=== PATIENT | female | born 1950 | race Caucasian/White ===

== ENCOUNTER 2017-03-22 17:52 | Inpatient (IN) | payer MEDICARE, MEDICAID ==
[2017-03-22 18:50] VITALS: BP 158/110
[2017-03-22] MEDS ORDERED: Magnesium Hydroxide (MOM) 30 mL UDC PO PRN (23:28)
[2017-03-22] MEDS ORDERED: Maalox 30 mL Cup PO PRN (23:28)
[2017-03-22] MEDS ORDERED: Non-Formulary Item 1 EA (Melatonin [Melatonin] 3 MG) PO PRN (23:55)
[2017-03-22] MEDS ORDERED: guaiFENesin 200 MG/10 ML UDC PO PRN (23:55)
--- NOTE | 2017-03-23 00:03 | Discharge Summary ---
DATE OF DISCHARGE: 03/22/2017 DISCHARGE DIAGNOSES: Pneumonia, fever, hypertension, hypercholesterolemia, schizoaffective disorder, Parkinson's, hyponatremia, hyperglycemia, hypothyroidism. HISTORY OF PRESENT ILLNESS: A 67-year-old female with a history of hypertension, hypercholesterolemia, schizoaffective disorder, Parkinson's, dementia, hypothyroidism, was admitted from nursing facility secondary to increasing shortness of breath, coughing and fever. PHYSICAL EXAMINATION: GENERAL: The patient is obese, awake, alert with confusion, in no apparent distress. VITAL SIGNS: Stable. HEAD: Normocephalic, atraumatic. NECK: Supple. No mass. LUNGS: Clear bilaterally. HEART: ____. ABDOMEN: Soft, nontender. HOSPITAL COURSE: During the hospital stay, the patient was admitted to the Med-Surg Unit. The patient was kept on empiric IV antibiotics. The patient also had a chest x-ray done. Upon admission, the patient's chest x-ray showed suboptimal lung zone. Mild increased left lower lobe markings which may be due to atelectasis versus scarring. No focal consolidation identified. The patient had a blood culture done, shows no growth after 48 hours. The patient was swabbed for MRSA, negative for any MRSA. The patient was also kept on inhalation treatments as well as supplement oxygen p.r.n. The patient did not have any fevers during the hospital stay. For this reason, the patient is stable to discharge to Geropsych Unit. CONDITION UPON DISCHARGE: Fair. DISPOSITION: Geropsych unit. JOB# [id number]
[2017-03-23] MEDS ORDERED: oxyCODONE 5 mg IR Tab PO PRN (00:15)
[2017-03-23] MEDS: Levothyroxine 0.15 Mg Tab PO SCH (06:52)
[2017-03-23] MEDS ORDERED: Atorvastatin Calcium 10 MG TAB PO SCH (09:00)
[2017-03-23] MEDS ORDERED: BACLOFEN 20 MG PO SCH (09:00)
[2017-03-23] MEDS: Acetaminophen 500 MG TAB PO SCH ×3 (09:37→21:03)
[2017-03-23] MEDS: POLYETHYLENE GLYCOL 3350 17 GM PACK PO SCH (09:37)
[2017-03-23] MEDS: Multivitamin Tab PO SCH (09:38)
[2017-03-23] MEDS: Fish Oil 1,000 MG SGL PO SCH ×3 (09:39→16:52)
[2017-03-23] MEDS ORDERED: Haloperidol Lactate 5 mg/mL 1mL Vial ONE (12:27)
[2017-03-23] MEDS ORDERED: Haloperidol Lactate 5 mg/mL 1mL Vial IM ONE (12:30)
[2017-03-23] MEDS ORDERED: Magnesium Hydroxide (MOM) 30 mL UDC PO PRN (13:02)
--- NOTE | 2017-03-23 15:43 | Internal Medicine Prog Note ---
Internal Medicine Subjective - Subjective Service Date: 03/23/17 Patient seen and examined:: with staff Patient is:: awake, verbal, agitated, confused Per staff patient has:: no adverse event, tolerating meds Internal Medicine Objective - Physical Exam Vitals and I&O: Vital Signs Temp 97.6 F 03/23/17 14:00 Pulse 72 03/23/17 14:00 Resp 18 03/23/17 14:00 BP 125/87 03/23/17 14:00 Pulse Ox 95 03/23/17 14:00 Active Medications: Current Medications Acetaminophen (Tylenol) 650 mg PO Q4HR PRN PRN Reason: Mild Pain / Temp above 100 Stop: 05/21/17 23:27 Acetaminophen (Tylenol Extra Strength) 500 mg PO TID [facility] Stop: 05/22/17 08:59 Last Admin: 03/23/17 13:16 Dose: Not Given Al Hydrox/Mg Hydrox/Simethicone (Maalox) 30 ml PO Q4HR PRN PRN Reason: GI DISTRESS Stop: 05/21/17 23:27 Amantadine HCl (Symmetrel) 100 mg PO BID [facility] Stop: 05/22/17 08:59 Last Admin: 03/23/17 09:38 Dose: 100 mg Atorvastatin Calcium (Lipitor) 10 mg PO HS [facility] PRN Reason: Protocol Stop: 05/22/17 20:59 Baclofen (Lioresal) 20 mg PO BID [facility] Stop: 05/22/17 08:59 Last Admin: 03/23/17 09:39 Dose: 20 mg Carbidopa/Levodopa (Sinemet 25mg-100 Mg) 1 tab PO BID [facility] Stop: 05/22/17 08:59 Last Admin: 03/23/17 09:39 Dose: 1 tab Carvedilol (Coreg) 6.25 mg PO BID [facility] Stop: 05/22/17 08:59 Last Admin: 03/23/17 09:38 Dose: 6.25 mg Docusate Sodium (Colace) 250 mg PO DAILY [facility] Stop: 05/22/17 08:59 Last Admin: 03/23/17 09:38 Dose: 250 mg Escitalopram Oxalate (Lexapro) 10 mg PO HS [facility] PRN Reason: Protocol Stop: 05/22/17 20:59 Fish Oil ([place] 3) 1,000 mg PO BID [facility] Stop: 05/22/17 08:59 Last Admin: 03/23/17 09:39 Dose: 1,000 mg Guaifenesin (Robitussin) 200 mg PO Q8HR PRN PRN Reason: Cough or Congestion Stop: 05/21/17 23:54 Levothyroxine Sodium (Synthroid) 0.15 mg PO QDAC [facility] Stop: 05/22/17 07:29 Last Admin: 03/23/17 06:52 Dose: Not Given Lorazepam (Ativan) 0.5 mg PO DAILY PRN; Protocol PRN Reason: Anxiety Stop: 05/22/17 13:01 Magnesium Hydroxide (Milk Of Magnesia) 30 ml PO HS PRN PRN Reason: Constipation Magnesium Hydroxide (Milk Of Magnesia) 30 ml PO Q6H PRN PRN Reason: Constipation Stop: 05/22/17 13:01 Memantine (Namenda) 10 mg PO DAILY [facility] Stop: 05/22/17 08:59 Last Admin: 03/23/17 09:39 Dose: 10 mg Multivitamins/Vitamin C (Theragran) 1 tab PO DAILY [facility] Stop: 05/22/17 08:59 Last Admin: 03/23/17 09:38 Dose: 1 tab Olanzapine (Zyprexa) 2.5 mg PO QAM [facility] PRN Reason: Protocol Stop: 05/22/17 08:59 Olanzapine (Zyprexa) 5 mg PO HS [facility] PRN Reason: Protocol Stop: 05/22/17 20:59 Oxycodone HCl (Oxycodone Ir) 5 mg PO Q8H PRN PRN Reason: Pain (Moderate) Stop: 05/22/17 00:14 Polyethylene Glycol (Miralax) 17 gm PO DAILY [facility] Stop: 05/22/17 08:59 Last Admin: 03/23/17 09:37 Dose: 17 gm Tramadol HCl (Ultram) 50 mg PO Q8H PRN PRN Reason: leg pain Stop: 05/21/17 23:54 Zolpidem Tartrate (Ambien) 5 mg PO HS PRN PRN Reason: Insomnia Stop: 05/21/17 23:27 General: alert HEENT: NC/AT, PERRLA Neck: Supple Lungs: CTAB Cardiovascular: RRR, without murmur Abdomen: soft, non-tender, non-distended, positive bowel sound Extremities: excoriation Neurological: alert - Procedures Procedures: Procedures Procedure Code Date INDIVID PSYCHOTHERAP NEC 94.39 07/29/08 OTHER GROUP THERAPY 94.44 09/09/14 RECREATIONAL THERAPY 93.81 07/29/08 Internal Medicine Assmt/Plan - Assessment Assessment: HTN HYPERCHOLESTEREMIA SCHIZOAFFECTIVE PARKINSON'S HYPOTHYROIDISM - Plan Plan: fall precautions safety precautions continue current plan of care
[2017-03-23] MEDS: Atorvastatin Calcium 10 MG TAB PO SCH (21:03)
[2017-03-24] MEDS: Levothyroxine 0.15 Mg Tab PO SCH (06:52)
[2017-03-24] MEDS: Fish Oil 1,000 MG SGL PO SCH ×2 (08:55→16:24)
[2017-03-24] MEDS: Acetaminophen 500 MG TAB PO SCH ×3 (08:55→20:51)
[2017-03-24] MEDS: Multivitamin Tab PO SCH (09:00)
[2017-03-24] MEDS: POLYETHYLENE GLYCOL 3350 17 GM PACK PO SCH (09:00)
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
--- NOTE | 2017-03-24 12:40 | Internal Medicine Prog Note ---
Internal Medicine Subjective - Subjective Patient seen and examined:: with staff, chart reviewed Patient is:: awake, verbal, interactive, agitated, confused Patient Complaints of:: congestion, cough Per staff patient has:: no adverse event, noncompliant, tolerating meds Internal Medicine Objective - Physical Exam Vitals and I&O: Vital Signs Temp 98.2 F 03/24/17 08:00 Pulse 73 03/24/17 08:56 Resp 20 03/24/17 08:00 BP 166/99 03/24/17 08:56 Pulse Ox 96 03/24/17 08:00 Intake & Output 03/23/17 03/24/17 03/24/17 18:59 06:59 18:59 Intake Total 1200 240 Balance 1200 240 Intake: Oral 1200 240 Other: # Voids 1 # Bowel Movements 1 Active Medications: Current Medications Acetaminophen (Tylenol) 650 mg PO Q4HR PRN PRN Reason: Mild Pain / Temp above 100 Stop: 05/21/17 23:27 Acetaminophen (Tylenol Extra Strength) 500 mg PO TID [facility] Stop: 05/22/17 08:59 Last Admin: 03/24/17 08:55 Dose: 500 mg Al Hydrox/Mg Hydrox/Simethicone (Maalox) 30 ml PO Q4HR PRN PRN Reason: GI DISTRESS Stop: 05/21/17 23:27 Amantadine HCl (Symmetrel) 100 mg PO BID [facility] Stop: 05/22/17 08:59 Last Admin: 03/24/17 08:54 Dose: 100 mg Atorvastatin Calcium (Lipitor) 10 mg PO HS [facility] PRN Reason: Protocol Stop: 05/22/17 20:59 Last Admin: 03/23/17 21:03 Dose: 10 mg Baclofen (Lioresal) 20 mg PO BID [facility] Stop: 05/22/17 08:59 Last Admin: 03/24/17 08:54 Dose: 20 mg Carbidopa/Levodopa (Sinemet 25mg-100 Mg) 1 tab PO BID [facility] Stop: 05/22/17 08:59 Last Admin: 03/24/17 08:55 Dose: 1 tab Carvedilol (Coreg) 6.25 mg PO BID [facility] Stop: 05/22/17 08:59 Last Admin: 03/24/17 08:56 Dose: 6.25 mg Docusate Sodium (Colace) 250 mg PO DAILY [facility] Stop: 05/22/17 08:59 Last Admin: 03/24/17 09:00 Dose: Not Given Escitalopram Oxalate (Lexapro) 10 mg PO HS [facility] PRN Reason: Protocol Stop: 05/22/17 20:59 Fish Oil ([place] 3) 1,000 mg PO BID [facility] Stop: 05/22/17 08:59 Last Admin: 03/24/17 08:55 Dose: 1,000 mg Guaifenesin (Robitussin) 200 mg PO Q8HR PRN PRN Reason: Cough or Congestion Stop: 05/21/17 23:54 Levothyroxine Sodium (Synthroid) 0.15 mg PO QDAC [facility] Stop: 05/22/17 07:29 Last Admin: 03/24/17 06:52 Dose: Not Given Lorazepam (Ativan) 0.5 mg PO DAILY PRN; Protocol PRN Reason: Anxiety Stop: 05/22/17 13:01 Magnesium Hydroxide (Milk Of Magnesia) 30 ml PO HS PRN PRN Reason: Constipation Magnesium Hydroxide (Milk Of Magnesia) 30 ml PO Q6H PRN PRN Reason: Constipation Stop: 05/22/17 13:01 Memantine (Namenda) 10 mg PO DAILY [facility] Stop: 05/22/17 08:59 Last Admin: 03/24/17 08:55 Dose: 10 mg Multivitamins/Vitamin C (Theragran) 1 tab PO DAILY [facility] Stop: 05/22/17 08:59 Last Admin: 03/24/17 09:00 Dose: Not Given Olanzapine (Zyprexa) 2.5 mg PO QAM [facility] PRN Reason: Protocol Stop: 05/22/17 08:59 Olanzapine (Zyprexa) 5 mg PO HS [facility] PRN Reason: Protocol Stop: 05/22/17 20:59 Oxycodone HCl (Oxycodone Ir) 5 mg PO Q8H PRN PRN Reason: Pain (Moderate) Stop: 05/22/17 00:14 Polyethylene Glycol (Miralax) 17 gm PO DAILY [facility] Stop: 05/22/17 08:59 Last Admin: 03/24/17 09:00 Dose: Not Given Tramadol HCl (Ultram) 50 mg PO Q8H PRN PRN Reason: leg pain Stop: 05/21/17 23:54 Zolpidem Tartrate (Ambien) 5 mg PO HS PRN PRN Reason: Insomnia Stop: 05/21/17 23:27 General: alert HEENT: NC/AT, PERRLA Neck: Supple Lungs: CTAB Cardiovascular: RRR, without murmur Abdomen: soft, non-tender, non-distended, positive bowel sound Extremities: excoriation Neurological: alert - Procedures Procedures: Procedures Procedure Code Date INDIVID PSYCHOTHERAP NEC 94.39 07/29/08 OTHER GROUP THERAPY 94.44 09/09/14 RECREATIONAL THERAPY 93.81 07/29/08 Internal Medicine Assmt/Plan - Assessment Assessment: - Assessment Assessment: HTN HYPERCHOLESTEREMIA SCHIZOAFFECTIVE PARKINSON'S HYPOTHYROIDISM - Plan Plan: fall precautions safety precautions continue current plan of care - Plan Plan: leida rn will order cxr
[2017-03-24] MEDS: Atorvastatin Calcium 10 MG TAB PO SCH (20:52)
[2017-03-25] MEDS: Levothyroxine 0.15 Mg Tab PO SCH (06:45)
[2017-03-25] MEDS: Fish Oil 1,000 MG SGL PO SCH ×2 (08:16→17:31)
[2017-03-25] MEDS: POLYETHYLENE GLYCOL 3350 17 GM PACK PO SCH (08:16)
[2017-03-25] MEDS: Multivitamin Tab PO SCH (08:16)
[2017-03-25] MEDS: Acetaminophen 500 MG TAB PO SCH ×3 (08:17→20:55)
--- NOTE | 2017-03-25 09:22 | Progress Notes ---
DATE: 03/24/2017 SUBJECTIVE: The patient was seen and evaluated. The patient's chart reviewed. This is Dr. Newton covering for Dr. Mandel. She is a 67-year-old female, brought in here from the Med/Surg and observed initially after being very agitated, status post pneumonia, yelling and screaming, depression, and feeling overwhelmed. She initially reported that her mood was not good and wanted to go. She has a history of schizoaffective, bipolar type and also dementia as per document. Today on [id number] evaluation, the patient denies any side effects to medications. Nursing staff overnight reports that she intermittently screams to them and on [id number] evaluation denies. She is guarded, mildly suspicious, denies any side effects of medication. MENTAL STATUS EXAMINATION: Mildly suspicious, depressed, melancholic. ASSESSMENT AND PLAN: The patient is a 67-year-old female with a history of schizoaffective, depressive type. We will continue with the current psychiatrist's treatment plan and goals, which include Sinemet, Coreg, Lexapro 10 mg a day, levothyroxine, Namenda 10 mg a day, olanzapine 2.5 mg in the morning and 5 mg at nighttime. We will continue monitoring and evaluating. We will continue providing supportive therapy. JOB# [id number]
--- NOTE | 2017-03-25 09:47 | Diagnostic Imaging Report ---
CHEST X-RAY: AP view INDICATION: Cough COMPARISON: 02/29/2016 FINDINGS: Chronic changes seen with no focal consolidation or effusions. Heart size is upper limits of normal. Atherosclerosis is noted. Degenerative changes of the spine are noted with scoliosis. IMPRESSION: No focal airspace consolidation identified.
--- NOTE | 2017-03-25 10:13 | Internal Medicine Prog Note ---
Internal Medicine Subjective - Subjective Patient seen and examined:: with staff, chart reviewed Patient is:: awake, verbal, interactive, agitated, confused Patient Complaints of:: congestion, cough Per staff patient has:: no adverse event, noncompliant, tolerating meds Internal Medicine Objective - Physical Exam Vitals and I&O: Vital Signs Temp 97.8 F 03/25/17 06:53 Pulse 80 03/25/17 08:16 Resp 18 03/25/17 06:53 BP 206/109 03/25/17 08:16 Pulse Ox 92 03/25/17 06:53 Intake & Output 03/24/17 03/25/17 03/25/17 18:59 06:59 18:59 Intake Total 1000 480 Balance 1000 480 Intake: Oral 1000 480 Other: # Voids 3 2 # Bowel Movements 1 Active Medications: Current Medications Acetaminophen (Tylenol) 650 mg PO Q4HR PRN PRN Reason: Mild Pain / Temp above 100 Stop: 05/21/17 23:27 Acetaminophen (Tylenol Extra Strength) 500 mg PO TID [facility] Stop: 05/22/17 08:59 Last Admin: 03/25/17 08:17 Dose: 500 mg Al Hydrox/Mg Hydrox/Simethicone (Maalox) 30 ml PO Q4HR PRN PRN Reason: GI DISTRESS Stop: 05/21/17 23:27 Amantadine HCl (Symmetrel) 100 mg PO BID [facility] Stop: 05/22/17 08:59 Last Admin: 03/25/17 08:16 Dose: 100 mg Atorvastatin Calcium (Lipitor) 10 mg PO HS [facility] PRN Reason: Protocol Stop: 05/22/17 20:59 Last Admin: 03/24/17 20:52 Dose: 10 mg Baclofen (Lioresal) 20 mg PO BID [facility] Stop: 05/22/17 08:59 Last Admin: 03/25/17 08:17 Dose: 20 mg Carbidopa/Levodopa (Sinemet 25mg-100 Mg) 1 tab PO BID [facility] Stop: 05/22/17 08:59 Last Admin: 03/25/17 08:17 Dose: 1 tab Carvedilol (Coreg) 12.5 mg PO BID [facility] Stop: 05/23/17 16:59 Last Admin: 03/25/17 08:16 Dose: 12.5 mg Docusate Sodium (Colace) 250 mg PO DAILY [facility] Stop: 05/22/17 08:59 Last Admin: 03/25/17 08:16 Dose: 250 mg Escitalopram Oxalate (Lexapro) 10 mg PO HS [facility] PRN Reason: Protocol Stop: 05/22/17 20:59 Fish Oil ([place]iro 3) 1,000 mg PO BID [facility] Stop: 05/22/17 08:59 Last Admin: 03/25/17 08:16 Dose: 1,000 mg Guaifenesin (Robitussin) 200 mg PO Q8HR PRN PRN Reason: Cough or Congestion Stop: 05/21/17 23:54 Last Admin: 03/24/17 13:31 Dose: 200 mg Levothyroxine Sodium (Synthroid) 0.15 mg PO QDAC [facility] Stop: 05/22/17 07:29 Last Admin: 03/25/17 06:45 Dose: Not Given Lorazepam (Ativan) 0.5 mg PO DAILY PRN; Protocol PRN Reason: Anxiety Stop: 05/22/17 13:01 Last Admin: 03/24/17 20:52 Dose: 0.5 mg Magnesium Hydroxide (Milk Of Magnesia) 30 ml PO HS PRN PRN Reason: Constipation Magnesium Hydroxide (Milk Of Magnesia) 30 ml PO Q6H PRN PRN Reason: Constipation Stop: 05/22/17 13:01 Memantine (Namenda) 10 mg PO DAILY [facility] Stop: 05/22/17 08:59 Last Admin: 03/25/17 08:17 Dose: 10 mg Multivitamins/Vitamin C (Theragran) 1 tab PO DAILY [facility] Stop: 05/22/17 08:59 Last Admin: 03/25/17 08:16 Dose: 1 tab Olanzapine (Zyprexa) 2.5 mg PO QAM [facility] PRN Reason: Protocol Stop: 05/22/17 08:59 Olanzapine (Zyprexa) 5 mg PO HS [facility] PRN Reason: Protocol Stop: 05/22/17 20:59 Oxycodone HCl (Oxycodone Ir) 5 mg PO Q8H PRN PRN Reason: Pain (Moderate) Stop: 05/22/17 00:14 Polyethylene Glycol (Miralax) 17 gm PO DAILY [facility] Stop: 05/22/17 08:59 Last Admin: 03/25/17 08:16 Dose: 17 gm Tramadol HCl (Ultram) 50 mg PO Q8H PRN PRN Reason: leg pain Stop: 05/21/17 23:54 Zolpidem Tartrate (Ambien) 5 mg PO HS PRN PRN Reason: Insomnia Stop: 05/21/17 23:27 Last Admin: 03/24/17 20:51 Dose: 5 mg General: alert HEENT: NC/AT, PERRLA Neck: Supple Lungs: CTAB Cardiovascular: RRR, without murmur Abdomen: soft, non-tender, non-distended, positive bowel sound Extremities: excoriation Neurological: alert - Procedures Procedures: Procedures Procedure Code Date INDIVID PSYCHOTHERAP NEC 94.39 07/29/08 OTHER GROUP THERAPY 94.44 09/09/14 RECREATIONAL THERAPY 93.81 07/29/08 Internal Medicine Assmt/Plan - Assessment Assessment: - Assessment Assessment: HTN HYPERCHOLESTEREMIA SCHIZOAFFECTIVE PARKINSON'S HYPOTHYROIDISM - Plan Plan: fall precautions safety precautions continue current plan of care - Plan Plan: leida rn will order cxr
[2017-03-25] MEDS: Atorvastatin Calcium 10 MG TAB PO SCH (20:57)
--- NOTE | 2017-03-26 08:47 | Progress Notes ---
DATE: 03/25/2017 SUBJECTIVE: The patient was seen and evaluated. The patient's chart reviewed. This is Dr. Newton, covering for Dr. Spencer. Overnight, nursing staff reported the patient was mostly kept in her room with intermittent scream, but at times can be redirectable. Today on [id number] evaluation, the patient reports that there are no chest pains and also reported that her mild cough is also improved. She is more redirectable. MENTAL STATUS EXAMINATION: Still observed to be slightly disorganized with intermittent yelling, screaming. Denies any SI/HI. No overt psychotic symptoms. ASSESSMENT AND PLAN: The patient is a 67-year-old female with a history of schizoaffective bipolar type, continuing to require ____. She continues intermittently to be agitated and combative, although improving with the recent addition of Zyprexa and Namenda. JOB# [id number]
[2017-03-26] MEDS: Multivitamin Tab PO SCH (09:31)
[2017-03-26] MEDS: Acetaminophen 500 MG TAB PO SCH ×3 (09:31→20:32)
[2017-03-26] MEDS: Levothyroxine 0.15 Mg Tab PO SCH (09:32)
[2017-03-26] MEDS: Fish Oil 1,000 MG SGL PO SCH ×2 (09:32→16:22)
[2017-03-26] MEDS: POLYETHYLENE GLYCOL 3350 17 GM PACK PO SCH (09:32)
--- NOTE | 2017-03-26 12:41 | Internal Medicine Prog Note ---
Internal Medicine Subjective - Subjective Service Date: 03/26/17 Patient is:: awake, verbal, interactive, agitated, confused Patient Complaints of:: congestion, cough Per staff patient has:: no adverse event, noncompliant, tolerating meds Internal Medicine Objective - Physical Exam Vitals and I&O: Vital Signs Temp 97.8 F 03/26/17 06:07 Pulse 68 03/26/17 09:31 Resp 18 03/26/17 06:07 BP 160/83 03/26/17 09:31 Pulse Ox 96 03/26/17 06:07 Intake & Output 03/25/17 03/26/17 03/26/17 18:59 06:59 18:59 Intake Total 1600 120 Balance 1600 120 Intake: Oral 1600 120 Other: # Voids 4 3 # Bowel Movements 0 Active Medications: Current Medications Acetaminophen (Tylenol) 650 mg PO Q4HR PRN PRN Reason: Mild Pain / Temp above 100 Stop: 05/21/17 23:27 Acetaminophen (Tylenol Extra Strength) 500 mg PO TID [facility] Stop: 05/22/17 08:59 Last Admin: 03/26/17 09:31 Dose: 500 mg Al Hydrox/Mg Hydrox/Simethicone (Maalox) 30 ml PO Q4HR PRN PRN Reason: GI DISTRESS Stop: 05/21/17 23:27 Amantadine HCl (Symmetrel) 100 mg PO BID [facility] Stop: 05/22/17 08:59 Last Admin: 03/26/17 09:31 Dose: 100 mg Atorvastatin Calcium (Lipitor) 10 mg PO HS [facility] PRN Reason: Protocol Stop: 05/22/17 20:59 Last Admin: 03/25/17 20:57 Dose: 10 mg Baclofen (Lioresal) 20 mg PO BID [facility] Stop: 05/22/17 08:59 Last Admin: 03/26/17 09:32 Dose: 20 mg Carbidopa/Levodopa (Sinemet 25mg-100 Mg) 1 tab PO BID [facility] Stop: 05/22/17 08:59 Last Admin: 03/26/17 09:31 Dose: 1 tab Carvedilol (Coreg) 12.5 mg PO BID [facility] Stop: 05/23/17 16:59 Last Admin: 03/26/17 09:31 Dose: 12.5 mg Docusate Sodium (Colace) 250 mg PO DAILY [facility] Stop: 05/22/17 08:59 Last Admin: 03/26/17 09:31 Dose: 250 mg Escitalopram Oxalate (Lexapro) 10 mg PO HS [facility] PRN Reason: Protocol Stop: 05/22/17 20:59 Last Admin: 03/25/17 20:56 Dose: 10 mg Fish Oil ([place] 3) 1,000 mg PO BID [facility] Stop: 05/22/17 08:59 Last Admin: 03/26/17 09:32 Dose: 1,000 mg Guaifenesin (Robitussin) 200 mg PO Q8HR PRN PRN Reason: Cough or Congestion Stop: 05/21/17 23:54 Last Admin: 03/24/17 13:31 Dose: 200 mg Levothyroxine Sodium 0.1 mg/ (Levothyroxine Sodium 0.05 mg) 0.15 mg PO QDAC [facility] Stop: 05/25/17 09:44 Lorazepam (Ativan) 0.5 mg PO DAILY PRN; Protocol PRN Reason: Anxiety Stop: 05/22/17 13:01 Last Admin: 03/24/17 20:52 Dose: 0.5 mg Magnesium Hydroxide (Milk Of Magnesia) 30 ml PO Q6H PRN PRN Reason: Constipation Stop: 05/22/17 13:01 Memantine (Namenda) 10 mg PO DAILY [facility] Stop: 05/22/17 08:59 Last Admin: 03/26/17 09:31 Dose: 10 mg Multivitamins/Vitamin C (Theragran) 1 tab PO DAILY [facility] Stop: 05/22/17 08:59 Last Admin: 03/26/17 09:31 Dose: 1 tab Olanzapine (Zyprexa) 5 mg PO HS [facility] PRN Reason: Protocol Stop: 05/22/17 20:59 Last Admin: 03/25/17 20:56 Dose: 5 mg Olanzapine (Zyprexa) 5 mg PO QAM [facility] PRN Reason: Protocol Stop: 05/25/17 12:38 Oxycodone HCl (Oxycodone Ir) 5 mg PO Q8H PRN PRN Reason: Pain (Moderate) Stop: 05/22/17 00:14 Polyethylene Glycol (Miralax) 17 gm PO DAILY [facility] Stop: 05/22/17 08:59 Last Admin: 03/26/17 09:32 Dose: 17 gm Tramadol HCl (Ultram) 50 mg PO Q8H PRN PRN Reason: leg pain Stop: 05/21/17 23:54 Zolpidem Tartrate (Ambien) 5 mg PO HS PRN PRN Reason: Insomnia Stop: 05/21/17 23:27 Last Admin: 03/24/17 20:51 Dose: 5 mg General: alert HEENT: NC/AT, PERRLA Neck: Supple Lungs: CTAB Cardiovascular: RRR, without murmur Abdomen: soft, non-tender, non-distended, positive bowel sound Extremities: excoriation Neurological: alert - Procedures Procedures: Procedures Procedure Code Date INDIVID PSYCHOTHERAP NEC 94.39 07/29/08 OTHER GROUP THERAPY 94.44 09/09/14 RECREATIONAL THERAPY 93.81 07/29/08 Internal Medicine Assmt/Plan - Assessment Assessment: HTN HYPERCHOLESTEREMIA SCHIZOAFFECTIVE PARKINSON'S HYPOTHYROIDISM - Plan Plan: fall precautions safety precautions continue current plan of care
[2017-03-26] MEDS: Atorvastatin Calcium 10 MG TAB PO SCH (20:30)
--- NOTE | 2017-03-26 22:58 | Progress Notes ---
DATE: 03/26/2017 Case was discussed with staff of the patient and reviewed records. This is the patient I have seen over in the medical floor. She was very agitated, kept asking for the nurses to help her and when they went to help her, she still would not cooperate. She continues to have episodes of being agitated, yelling, and screaming. Continues to have poor insight. Unable to make a safe plan for her self-care, unpredictable and impulsive. I did increase her olanzapine dose to 7.5 mg a day and I will be making further adjustment. No side effects with the medication, no sedation, no nausea, no extrapyramidal symptoms. I will continue the patient in group therapy, milieu therapy, and adjust the medication as needed and as far as her lab works they are not on the records yet. JOB# [id number]
[2017-03-27] MEDS: POLYETHYLENE GLYCOL 3350 17 GM PACK PO SCH (08:35)
[2017-03-27] MEDS: Acetaminophen 500 MG TAB PO SCH ×3 (08:36→20:25)
[2017-03-27] MEDS: Multivitamin Tab PO SCH (08:37)
[2017-03-27] MEDS: Fish Oil 1,000 MG SGL PO SCH ×2 (08:38→17:15)
--- NOTE | 2017-03-27 12:55 | Internal Medicine Prog Note ---
Internal Medicine Subjective - Subjective Service Date: 03/27/17 Patient is:: awake, verbal, interactive, agitated, confused Patient Complaints of:: congestion, cough Per staff patient has:: no adverse event, noncompliant, tolerating meds Internal Medicine Objective - Physical Exam Vitals and I&O: Vital Signs Temp 98.0 F 03/27/17 06:33 Pulse 67 03/27/17 08:37 Resp 20 03/27/17 06:33 BP 170/94 03/27/17 08:37 Pulse Ox 93 03/27/17 06:33 Intake & Output 03/26/17 03/27/17 03/27/17 18:59 06:59 18:59 Intake Total 950 Balance 950 Intake: Oral 950 Other: # Voids 4 # Bowel Movements 1 Active Medications: Current Medications Acetaminophen (Tylenol) 650 mg PO Q4HR PRN PRN Reason: Mild Pain / Temp above 100 Stop: 05/21/17 23:27 Acetaminophen (Tylenol Extra Strength) 500 mg PO TID [facility] Stop: 05/22/17 08:59 Last Admin: 03/27/17 08:36 Dose: 500 mg Al Hydrox/Mg Hydrox/Simethicone (Maalox) 30 ml PO Q4HR PRN PRN Reason: GI DISTRESS Stop: 05/21/17 23:27 Amantadine HCl (Symmetrel) 100 mg PO BID [facility] Stop: 05/22/17 08:59 Last Admin: 03/27/17 08:38 Dose: 100 mg Atorvastatin Calcium (Lipitor) 10 mg PO HS [facility] PRN Reason: Protocol Stop: 05/22/17 20:59 Last Admin: 03/26/17 20:30 Dose: 10 mg Baclofen (Lioresal) 20 mg PO BID [facility] Stop: 05/22/17 08:59 Last Admin: 03/27/17 08:35 Dose: 20 mg Carbidopa/Levodopa (Sinemet 25mg-100 Mg) 1 tab PO BID [facility] Stop: 05/22/17 08:59 Last Admin: 03/27/17 08:36 Dose: 1 tab Carvedilol (Coreg) 12.5 mg PO BID [facility] Stop: 05/23/17 16:59 Last Admin: 03/27/17 08:37 Dose: 12.5 mg Docusate Sodium (Colace) 250 mg PO DAILY [facility] Stop: 05/22/17 08:59 Last Admin: 03/27/17 08:36 Dose: 250 mg Escitalopram Oxalate (Lexapro) 10 mg PO HS [facility] PRN Reason: Protocol Stop: 05/22/17 20:59 Last Admin: 03/26/17 20:31 Dose: 10 mg Fish Oil ([place] 3) 1,000 mg PO BID [facility] Stop: 05/22/17 08:59 Last Admin: 03/27/17 08:38 Dose: 1,000 mg Guaifenesin (Robitussin) 200 mg PO Q8HR PRN PRN Reason: Cough or Congestion Stop: 05/21/17 23:54 Last Admin: 03/24/17 13:31 Dose: 200 mg Levothyroxine Sodium 0.1 mg/ (Levothyroxine Sodium 0.05 mg) 0.15 mg PO QDAC [facility] Stop: 05/25/17 09:44 Last Admin: 03/27/17 06:52 Dose: 0.15 mg Lorazepam (Ativan) 0.5 mg PO DAILY PRN; Protocol PRN Reason: Anxiety Stop: 05/22/17 13:01 Last Admin: 03/24/17 20:52 Dose: 0.5 mg Magnesium Hydroxide (Milk Of Magnesia) 30 ml PO Q6H PRN PRN Reason: Constipation Stop: 05/22/17 13:01 Memantine (Namenda) 10 mg PO DAILY [facility] Stop: 05/22/17 08:59 Last Admin: 03/27/17 08:36 Dose: 10 mg Multivitamins/Vitamin C (Theragran) 1 tab PO DAILY [facility] Stop: 05/22/17 08:59 Last Admin: 03/27/17 08:37 Dose: 1 tab Olanzapine (Zyprexa) 5 mg PO HS [facility] PRN Reason: Protocol Stop: 05/22/17 20:59 Last Admin: 03/26/17 20:31 Dose: 5 mg Olanzapine (Zyprexa) 5 mg PO QAM [facility] PRN Reason: Protocol Stop: 05/25/17 12:38 Last Admin: 03/27/17 08:36 Dose: 5 mg Oxycodone HCl (Oxycodone Ir) 5 mg PO Q8H PRN PRN Reason: Pain (Moderate) Stop: 05/22/17 00:14 Polyethylene Glycol (Miralax) 17 gm PO DAILY [facility] Stop: 05/22/17 08:59 Last Admin: 03/27/17 08:35 Dose: 17 gm Tramadol HCl (Ultram) 50 mg PO Q8H PRN PRN Reason: leg pain Stop: 05/21/17 23:54 Zolpidem Tartrate (Ambien) 5 mg PO HS PRN PRN Reason: Insomnia Stop: 05/21/17 23:27 Last Admin: 03/26/17 20:39 Dose: 5 mg General: alert HEENT: NC/AT, PERRLA Neck: Supple Lungs: CTAB Cardiovascular: RRR, without murmur Abdomen: soft, non-tender, non-distended, positive bowel sound Extremities: excoriation Neurological: alert - Procedures Procedures: Procedures Procedure Code Date INDIVID PSYCHOTHERAP NEC 94.39 07/29/08 OTHER GROUP THERAPY 94.44 09/09/14 RECREATIONAL THERAPY 93.81 07/29/08 Internal Medicine Assmt/Plan - Assessment Assessment: HTN HYPERCHOLESTEREMIA SCHIZOAFFECTIVE PARKINSON'S HYPOTHYROIDISM - Plan Plan: fall precautions safety precautions continue current plan of care
--- NOTE | 2017-03-27 16:20 | Progress Notes ---
DATE: 03/27/2017 Case was discussed with staff of the patient, reviewed records. The patient continues to be labile, continues to be demanding, yelling and screaming, hard to redirect, very hard to please, very poor insight, unable to make safe plan for self-care, confused, and demented. She is compliant with the medication with no side effects, no sedation, no nausea, no extrapyramidal symptoms. I did increase her Zyprexa dose. We will continue to work with the patient in group therapy and milieu therapy and adjust medication as needed. JOB# [id number]
[2017-03-27] MEDS: Atorvastatin Calcium 10 MG TAB PO SCH (20:24)
[2017-03-28] MEDS: Acetaminophen 500 MG TAB PO SCH ×3 (09:59→20:37)
[2017-03-28] MEDS: Fish Oil 1,000 MG SGL PO SCH (10:03)
[2017-03-28] MEDS: Multivitamin Tab PO SCH (10:03)
[2017-03-28] MEDS: POLYETHYLENE GLYCOL 3350 17 GM PACK PO SCH (10:03)
--- NOTE | 2017-03-28 12:15 | Internal Medicine Prog Note ---
Internal Medicine Subjective - Subjective Service Date: 03/28/17 Patient is:: awake, verbal, interactive, agitated, confused Patient Complaints of:: congestion, cough Per staff patient has:: no adverse event, noncompliant, tolerating meds Internal Medicine Objective - Physical Exam Vitals and I&O: Vital Signs Temp 98.2 F 03/28/17 07:41 Pulse 74 03/28/17 10:02 Resp 20 03/28/17 07:41 BP 161/90 03/28/17 10:02 Pulse Ox 93 03/28/17 07:41 Intake & Output 03/27/17 03/28/17 03/28/17 18:59 06:59 18:59 Intake Total 900 240 240 Balance 900 240 240 Intake: Oral 900 240 240 Other: # Voids 5 2 2 # Bowel Movements 1 1 Active Medications: Current Medications Acetaminophen (Tylenol) 650 mg PO Q4HR PRN PRN Reason: Mild Pain / Temp above 100 Stop: 05/21/17 23:27 Acetaminophen (Tylenol Extra Strength) 500 mg PO TID [facility] Stop: 05/22/17 08:59 Last Admin: 03/28/17 09:59 Dose: 500 mg Al Hydrox/Mg Hydrox/Simethicone (Maalox) 30 ml PO Q4HR PRN PRN Reason: GI DISTRESS Stop: 05/21/17 23:27 Amantadine HCl (Symmetrel) 100 mg PO BID [facility] Stop: 05/22/17 08:59 Last Admin: 03/28/17 10:04 Dose: 100 mg Atorvastatin Calcium (Lipitor) 10 mg PO HS [facility] PRN Reason: Protocol Stop: 05/22/17 20:59 Last Admin: 03/27/17 20:24 Dose: 10 mg Baclofen (Lioresal) 20 mg PO BID [facility] Stop: 05/22/17 08:59 Last Admin: 03/28/17 10:01 Dose: 20 mg Carbidopa/Levodopa (Sinemet 25mg-100 Mg) 1 tab PO BID [facility] Stop: 05/22/17 08:59 Last Admin: 03/28/17 10:02 Dose: 1 tab Carvedilol (Coreg) 12.5 mg PO BID [facility] Stop: 05/23/17 16:59 Last Admin: 03/28/17 10:02 Dose: 12.5 mg Docusate Sodium (Colace) 250 mg PO DAILY [facility] Stop: 05/22/17 08:59 Last Admin: 03/28/17 10:03 Dose: 250 mg Escitalopram Oxalate (Lexapro) 10 mg PO HS [facility] PRN Reason: Protocol Stop: 05/22/17 20:59 Last Admin: 03/27/17 20:24 Dose: 10 mg Fish Oil ([place] 3) 1,000 mg PO BID [facility] Stop: 05/22/17 08:59 Last Admin: 03/28/17 10:03 Dose: 1,000 mg Guaifenesin (Robitussin) 200 mg PO Q8HR PRN PRN Reason: Cough or Congestion Stop: 05/21/17 23:54 Last Admin: 03/24/17 13:31 Dose: 200 mg Levothyroxine Sodium 0.1 mg/ (Levothyroxine Sodium 0.05 mg) 0.15 mg PO QDAC [facility] Stop: 05/25/17 09:44 Last Admin: 03/28/17 06:35 Dose: 0.15 mg Lorazepam (Ativan) 0.5 mg PO DAILY PRN; Protocol PRN Reason: Anxiety Stop: 05/22/17 13:01 Last Admin: 03/27/17 20:25 Dose: 0.5 mg Magnesium Hydroxide (Milk Of Magnesia) 30 ml PO Q6H PRN PRN Reason: Constipation Stop: 05/22/17 13:01 Memantine (Namenda) 10 mg PO BID [facility] Stop: 05/27/17 08:59 Last Admin: 03/28/17 10:03 Dose: 10 mg Multivitamins/Vitamin C (Theragran) 1 tab PO DAILY [facility] Stop: 05/22/17 08:59 Last Admin: 03/28/17 10:03 Dose: 1 tab Olanzapine (Zyprexa) 5 mg PO HS [facility] PRN Reason: Protocol Stop: 05/22/17 20:59 Last Admin: 03/27/17 20:24 Dose: 5 mg Olanzapine (Zyprexa) 5 mg PO QAM [facility] PRN Reason: Protocol Stop: 05/25/17 12:38 Last Admin: 03/28/17 10:03 Dose: 5 mg Oxycodone HCl (Oxycodone Ir) 5 mg PO Q8H PRN PRN Reason: Pain (Moderate) Stop: 05/22/17 00:14 Polyethylene Glycol (Miralax) 17 gm PO DAILY [facility] Stop: 05/22/17 08:59 Last Admin: 03/28/17 10:03 Dose: Not Given Tramadol HCl (Ultram) 50 mg PO Q8H PRN PRN Reason: leg pain Stop: 05/21/17 23:54 Zolpidem Tartrate (Ambien) 5 mg PO HS PRN PRN Reason: Insomnia Stop: 05/21/17 23:27 Last Admin: 03/27/17 20:25 Dose: 5 mg General: alert HEENT: NC/AT, PERRLA Neck: Supple Lungs: CTAB Cardiovascular: RRR, without murmur Abdomen: soft, non-tender, non-distended, positive bowel sound Extremities: excoriation Neurological: alert - Procedures Procedures: Procedures Procedure Code Date INDIVID PSYCHOTHERAP NEC 94.39 07/29/08 OTHER GROUP THERAPY 94.44 09/09/14 RECREATIONAL THERAPY 93.81 07/29/08 Internal Medicine Assmt/Plan - Assessment Assessment: HTN HYPERCHOLESTEREMIA SCHIZOAFFECTIVE PARKINSON'S HYPOTHYROIDISM - Plan Plan: fall precautions safety precautions continue current plan of care
--- NOTE | 2017-03-28 15:52 | Progress Notes ---
DATE: 03/28/2017 Case was discussed with staff of the patient, reviewed records. The patient continues to have episodes of yelling and screaming. Continues to have poor insight. Continues to be unpredictable, impulsive, needing redirection. She is able to tell me her age. She has very poor insight, concentrated on going to [place], unable to make safe plan for self-care. I did increase her olanzapine to 5 mg twice a day with no side effects, no sedation, no nausea, and no extrapyramidal symptoms. She is on Namenda 10 mg daily. I will be increasing the dose to 10 mg twice a day to improve her memory and behavior and so far no side effects. We will continue to work with the patient in group therapy, milieu therapy, and adjust the medication as needed. JOB# [id number]
[2017-03-28] MEDS: Atorvastatin Calcium 10 MG TAB PO SCH (20:37)
[2017-03-29] MEDS: Acetaminophen 500 MG TAB PO SCH ×3 (12:11→20:23)
[2017-03-29] MEDS: POLYETHYLENE GLYCOL 3350 17 GM PACK PO SCH (12:13)
[2017-03-29] MEDS: Fish Oil 1,000 MG SGL PO SCH ×2 (12:13→18:22)
[2017-03-29] MEDS: Multivitamin Tab PO SCH (12:13)
--- NOTE | 2017-03-29 12:17 | Internal Medicine Prog Note ---
Internal Medicine Subjective - Subjective Service Date: 03/29/17 Patient is:: awake, verbal, interactive, agitated, confused Patient Complaints of:: congestion, cough Per staff patient has:: no adverse event, noncompliant, tolerating meds Internal Medicine Objective - Physical Exam Vitals and I&O: Vital Signs Temp 98.2 F 03/28/17 15:51 Pulse 76 03/29/17 12:12 Resp 20 03/28/17 15:51 BP 180/113 03/29/17 12:12 Pulse Ox 93 03/28/17 15:51 Intake & Output 03/28/17 03/29/17 03/29/17 18:59 06:59 18:59 Intake Total 240 Balance 240 Intake: Oral 240 Other: # Voids 2 # Bowel Movements 1 Active Medications: Current Medications Acetaminophen (Tylenol) 650 mg PO Q4HR PRN PRN Reason: Mild Pain / Temp above 100 Stop: 05/21/17 23:27 Acetaminophen (Tylenol Extra Strength) 500 mg PO TID [facility] Stop: 05/22/17 08:59 Last Admin: 03/29/17 12:11 Dose: Not Given Al Hydrox/Mg Hydrox/Simethicone (Maalox) 30 ml PO Q4HR PRN PRN Reason: GI DISTRESS Stop: 05/21/17 23:27 Amantadine HCl (Symmetrel) 100 mg PO BID [facility] Stop: 05/22/17 08:59 Last Admin: 03/29/17 12:08 Dose: 100 mg Atorvastatin Calcium (Lipitor) 10 mg PO HS [facility] PRN Reason: Protocol Stop: 05/22/17 20:59 Last Admin: 03/28/17 20:37 Dose: 10 mg Baclofen (Lioresal) 20 mg PO BID [facility] Stop: 05/22/17 08:59 Last Admin: 03/29/17 12:12 Dose: 20 mg Carbidopa/Levodopa (Sinemet 25mg-100 Mg) 1 tab PO BID [facility] Stop: 05/22/17 08:59 Last Admin: 03/29/17 12:12 Dose: 1 tab Carvedilol (Coreg) 12.5 mg PO BID [facility] Stop: 05/23/17 16:59 Last Admin: 03/29/17 12:12 Dose: 12.5 mg Docusate Sodium (Colace) 250 mg PO DAILY [facility] Stop: 05/22/17 08:59 Last Admin: 03/29/17 12:13 Dose: 250 mg Escitalopram Oxalate (Lexapro) 10 mg PO HS [facility] PRN Reason: Protocol Stop: 05/22/17 20:59 Last Admin: 03/28/17 20:37 Dose: 10 mg Fish Oil ([place] 3) 1,000 mg PO BID [facility] Stop: 05/22/17 08:59 Last Admin: 03/29/17 12:13 Dose: 1,000 mg Guaifenesin (Robitussin) 200 mg PO Q8HR PRN PRN Reason: Cough or Congestion Stop: 05/21/17 23:54 Last Admin: 03/24/17 13:31 Dose: 200 mg Levothyroxine Sodium 0.1 mg/ (Levothyroxine Sodium 0.05 mg) 0.15 mg PO QDAC [facility] Stop: 05/25/17 09:44 Last Admin: 03/29/17 06:31 Dose: 0.15 mg Lorazepam (Ativan) 0.5 mg PO DAILY PRN; Protocol PRN Reason: Anxiety Stop: 05/22/17 13:01 Last Admin: 03/29/17 00:12 Dose: 0.5 mg Magnesium Hydroxide (Milk Of Magnesia) 30 ml PO Q6H PRN PRN Reason: Constipation Stop: 05/22/17 13:01 Memantine (Namenda) 10 mg PO BID [facility] Stop: 05/27/17 08:59 Last Admin: 03/29/17 12:13 Dose: 10 mg Multivitamins/Vitamin C (Theragran) 1 tab PO DAILY [facility] Stop: 05/22/17 08:59 Last Admin: 03/29/17 12:13 Dose: 1 tab Olanzapine (Zyprexa) 5 mg PO HS [facility] PRN Reason: Protocol Stop: 05/22/17 20:59 Last Admin: 03/28/17 20:37 Dose: 5 mg Olanzapine (Zyprexa) 5 mg PO QAM [facility] PRN Reason: Protocol Stop: 05/25/17 12:38 Last Admin: 03/29/17 12:13 Dose: 5 mg Oxycodone HCl (Oxycodone Ir) 5 mg PO Q8H PRN PRN Reason: Pain (Moderate) Stop: 05/22/17 00:14 Polyethylene Glycol (Miralax) 17 gm PO DAILY [facility] Stop: 05/22/17 08:59 Last Admin: 03/29/17 12:13 Dose: 17 gm Tramadol HCl (Ultram) 50 mg PO Q8H PRN PRN Reason: leg pain Stop: 05/21/17 23:54 Zolpidem Tartrate (Ambien) 5 mg PO HS PRN PRN Reason: Insomnia Stop: 05/21/17 23:27 Last Admin: 03/29/17 00:12 Dose: 5 mg General: alert HEENT: NC/AT, PERRLA Neck: Supple Lungs: CTAB Cardiovascular: RRR, without murmur Abdomen: soft, non-tender, non-distended, positive bowel sound Extremities: excoriation Neurological: alert - Procedures Procedures: Procedures Procedure Code Date INDIVID PSYCHOTHERAP NEC 94.39 07/29/08 OTHER GROUP THERAPY 94.44 09/09/14 RECREATIONAL THERAPY 93.81 07/29/08 Internal Medicine Assmt/Plan - Assessment Assessment: HTN HYPERCHOLESTEREMIA SCHIZOAFFECTIVE PARKINSON'S HYPOTHYROIDISM - Plan Plan: fall precautions safety precautions continue current plan of care Nutritional Asmnt/Malnutr-PDOC - Dietary Evaluation Malnutrition Findings (Please click <Entered> for more info): Nutritional Asmnt/Malnutrition Start: 03/28/17 15: 31 Text: Status: Complete Freq: Document 03/28/17 15:31 LCHENG (Rec: 03/28/17 15:37 [email or web address]) Nutritional Asmnt/Malnutrition Patient General Information Nutritional Screening Moderate Risk Diagnosis psychosis Pertinent Medical Hx/Surgical Hx HTN, hypercholesterolemia, schizophrenia, pankinson/s disease, dementia, hypothyroidism Subjective Information Pt seen lying in bed, awake. Pt reported good appetite, has difficulty to chew rice, like herbal tea instead of coffee. pt has partial teeth noted. Per notes, PO intake 100%. Current Diet Order/ Nutrition Support no added salt 4 gm Pertinent Medications colcace, omega 3, levothyroxine, theragran Pertinent Labs no labs Nutritional Hx/Data Height 5 ft 6 in Height (Calculated Centimeters) 167.6 Current Weight (lbs) 218 lb Weight (Calculated Kilograms) 98.9 Weight (Calculated Grams) 66979.1 [place] Body Weight 130 % [place] Body Weight 168 Body Mass Index (BMI) 35.2 Weight Status Obese GI Symptoms GI Symptoms None Last BM 03/28 Difficult in: None Skin Integrity/Comment: intact Current %PO Good (75-100%) Estimated Nutritional Goals BEE in Kcals: Adj wt of IBW Calories/Kcals/Kg 25-30 Kcals Calculated 7336-0502 based on adj wt 69kg Protein: Adj wt of IBW Protein g/k Protein Calculated 69 Fluid: ml Nutritional Problem 1. Problem Problem obesity Etiology possible excessive energy intake Signs/Symptoms: BMI 35 Malnutrition Alert Protein-Calorie Malnutrition N/A Is there a minimum of two criteria No selected? Query Text:Check all the applicable criteria. A minimum of two criteria are recommended for diagnosis of either severe or non-severe malnutrition. Intervention/Recommendation Comments 1. Continue with current diet as ordered. Notified dietitian assistant and updated pt food preference 2. Monitor PO intake, wt weekly, and skin integrity 3. F/U as low risk in 7 days, 04/04 Expected Outcomes/Goals Expected Outcomes/Goals 1. PO intake to meet at least 75% of nutritional needs. 2. Wt stability, skin to remain intact
--- NOTE | 2017-03-29 14:38 | Progress Notes ---
DATE: 03/29/2017 Case was discussed with staff of the patient, reviewed records. The patient continues to be acting out. Continues to be yelling and screaming for no apparent reason. I tried to calm her down, but she would not listen to me. She kept saying that she ____ few days ago, and I explained to her that she needs to stop yelling and screaming, so we would be willing to take her. She continues to be out of control, unpredictable, impulsive, continues to be demanding. She is not responding well to redirection. She appears at times to respond to internal stimuli. She is demented. Also, I will be increasing her Zyprexa dose in the evening to 7.5 mg at bedtime because of her severe agitation and out of control behavior. I did increase her Namenda dose yesterday. We will continue to work with the patient in group therapy, milieu therapy, and adjust medication as needed. JOB# [id number]
[2017-03-29] MEDS: Atorvastatin Calcium 10 MG TAB PO SCH (20:23)
[2017-03-30] MEDS: POLYETHYLENE GLYCOL 3350 17 GM PACK PO SCH (09:24)
[2017-03-30] MEDS: Acetaminophen 500 MG TAB PO SCH ×3 (09:25→21:43)
[2017-03-30] MEDS: Multivitamin Tab PO SCH (09:26)
[2017-03-30] MEDS: Fish Oil 1,000 MG SGL PO SCH (09:26)
--- NOTE | 2017-03-30 13:33 | Internal Medicine Prog Note ---
Internal Medicine Subjective - Subjective Service Date: 03/30/17 Patient is:: awake, verbal, interactive, agitated, confused Patient Complaints of:: congestion, cough Per staff patient has:: no adverse event, noncompliant, tolerating meds Internal Medicine Objective - Physical Exam Vitals and I&O: Vital Signs Temp 97.8 F 03/30/17 06:43 Pulse 73 03/30/17 09:26 Resp 20 03/30/17 06:43 BP 150/68 03/30/17 09:26 Pulse Ox 98 03/30/17 06:43 Intake & Output 03/29/17 03/30/17 03/30/17 18:59 06:59 18:59 Intake Total 120 Balance 120 Intake: Oral 120 Other: # Voids 3 Active Medications: Current Medications Acetaminophen (Tylenol) 650 mg PO Q4HR PRN PRN Reason: Mild Pain / Temp above 100 Stop: 05/21/17 23:27 Acetaminophen (Tylenol Extra Strength) 500 mg PO TID [facility] Stop: 05/22/17 08:59 Last Admin: 03/30/17 09:25 Dose: 500 mg Al Hydrox/Mg Hydrox/Simethicone (Maalox) 30 ml PO Q4HR PRN PRN Reason: GI DISTRESS Stop: 05/21/17 23:27 Amantadine HCl (Symmetrel) 100 mg PO BID [facility] Stop: 05/22/17 08:59 Last Admin: 03/30/17 09:26 Dose: 100 mg Atorvastatin Calcium (Lipitor) 10 mg PO HS [facility] PRN Reason: Protocol Stop: 05/22/17 20:59 Last Admin: 03/29/17 20:23 Dose: 10 mg Baclofen (Lioresal) 20 mg PO BID [facility] Stop: 05/22/17 08:59 Last Admin: 03/30/17 09:28 Dose: 20 mg Carbidopa/Levodopa (Sinemet 25mg-100 Mg) 1 tab PO BID [facility] Stop: 05/22/17 08:59 Last Admin: 03/30/17 09:28 Dose: 1 tab Carvedilol (Coreg) 12.5 mg PO BID [facility] Stop: 05/23/17 16:59 Last Admin: 03/30/17 09:26 Dose: 12.5 mg Docusate Sodium (Colace) 250 mg PO DAILY [facility] Stop: 05/22/17 08:59 Last Admin: 03/30/17 09:24 Dose: 250 mg Escitalopram Oxalate (Lexapro) 10 mg PO HS [facility] PRN Reason: Protocol Stop: 05/22/17 20:59 Last Admin: 03/29/17 20:23 Dose: 10 mg Fish Oil ([place] 3) 1,000 mg PO BID [facility] Stop: 05/22/17 08:59 Last Admin: 03/30/17 09:26 Dose: 1,000 mg Guaifenesin (Robitussin) 200 mg PO Q8HR PRN PRN Reason: Cough or Congestion Stop: 05/21/17 23:54 Last Admin: 03/24/17 13:31 Dose: 200 mg Levothyroxine Sodium 0.1 mg/ (Levothyroxine Sodium 0.05 mg) 0.15 mg PO QDAC [facility] Stop: 05/25/17 09:44 Last Admin: 03/30/17 07:08 Dose: 0.15 mg Lorazepam (Ativan) 0.5 mg PO DAILY PRN; Protocol PRN Reason: Anxiety Stop: 05/22/17 13:01 Last Admin: 03/29/17 20:23 Dose: 0.5 mg Magnesium Hydroxide (Milk Of Magnesia) 30 ml PO Q6H PRN PRN Reason: Constipation Stop: 05/22/17 13:01 Memantine (Namenda) 10 mg PO BID [facility] Stop: 05/27/17 08:59 Last Admin: 03/30/17 09:32 Dose: 10 mg Multivitamins/Vitamin C (Theragran) 1 tab PO DAILY [facility] Stop: 05/22/17 08:59 Last Admin: 03/30/17 09:26 Dose: 1 tab Olanzapine (Zyprexa) 5 mg PO QAM [facility] PRN Reason: Protocol Stop: 05/25/17 12:38 Last Admin: 03/30/17 09:24 Dose: 5 mg Olanzapine (Zyprexa) 7.5 mg PO HS [facility] PRN Reason: Protocol Stop: 05/28/17 12:17 Last Admin: 03/29/17 20:22 Dose: 7.5 mg Oxycodone HCl (Oxycodone Ir) 5 mg PO Q8H PRN PRN Reason: Pain (Moderate) Stop: 05/22/17 00:14 Polyethylene Glycol (Miralax) 17 gm PO DAILY [facility] Stop: 05/22/17 08:59 Last Admin: 03/30/17 09:24 Dose: 17 gm Tramadol HCl (Ultram) 50 mg PO Q8H PRN PRN Reason: leg pain Stop: 05/21/17 23:54 Zolpidem Tartrate (Ambien) 5 mg PO HS PRN PRN Reason: Insomnia Stop: 05/21/17 23:27 Last Admin: 03/29/17 20:23 Dose: 5 mg General: alert HEENT: NC/AT, PERRLA Neck: Supple Lungs: CTAB Cardiovascular: RRR, without murmur Abdomen: soft, non-tender, non-distended, positive bowel sound Extremities: excoriation Neurological: alert - Procedures Procedures: Procedures Procedure Code Date INDIVID PSYCHOTHERAP NEC 94.39 07/29/08 OTHER GROUP THERAPY 94.44 09/09/14 RECREATIONAL THERAPY 93.81 07/29/08 Internal Medicine Assmt/Plan - Assessment Assessment: HTN HYPERCHOLESTEREMIA SCHIZOAFFECTIVE PARKINSON'S HYPOTHYROIDISM - Plan Plan: fall precautions safety precautions continue current plan of care Nutritional Asmnt/Malnutr-PDOC - Dietary Evaluation Malnutrition Findings (Please click <Entered> for more info): Nutritional Asmnt/Malnutrition Start: 03/28/17 15: 31 Text: Status: Complete Freq: Document 03/28/17 15:31 [email or web address] (Rec: 03/28/17 15:37 [email or web address] [email or web address]) Nutritional Asmnt/Malnutrition Patient General Information Nutritional Screening Moderate Risk Diagnosis psychosis Pertinent Medical Hx/Surgical Hx HTN, hypercholesterolemia, schizophrenia, pankinson/s disease, dementia, hypothyroidism Subjective Information Pt seen lying in bed, awake. Pt reported good appetite, has difficulty to chew rice, like herbal tea instead of coffee. pt has partial teeth noted. Per notes, PO intake 100%. Current Diet Order/ Nutrition Support no added salt 4 gm Pertinent Medications colcace, omega 3, levothyroxine, theragran Pertinent Labs no labs Nutritional Hx/Data Height 5 ft 6 in Height (Calculated Centimeters) 167.6 Current Weight (lbs) 218 lb Weight (Calculated Kilograms) 98.9 Weight (Calculated Grams) 89179.1 [place] Body Weight 130 % [place] Body Weight 168 Body Mass Index (BMI) 35.2 Weight Status Obese GI Symptoms GI Symptoms None Last BM 03/28 Difficult in: None Skin Integrity/Comment: intact Current %PO Good (75-100%) Estimated Nutritional Goals BEE in Kcals: Adj wt of IBW Calories/Kcals/Kg 25-30 Kcals Calculated [id number] based on adj wt 69kg Protein: Adj wt of IBW Protein g/k Protein Calculated 69 Fluid: ml Nutritional Problem 1. Problem Problem obesity Etiology possible excessive energy intake Signs/Symptoms: BMI 35 Malnutrition Alert Protein-Calorie Malnutrition N/A Is there a minimum of two criteria No selected? Query Text:Check all the applicable criteria. A minimum of two criteria are recommended for diagnosis of either severe or non-severe malnutrition. Intervention/Recommendation Comments 1. Continue with current diet as ordered. Notified dietary aide cook and updated pt food preference 2. Monitor PO intake, wt weekly, and skin integrity 3. F/U as low risk in 7 days, 04/04 Expected Outcomes/Goals Expected Outcomes/Goals 1. PO intake to meet at least 75% of nutritional needs. 2. Wt stability, skin to remain intact
[2017-03-30] MEDS: Atorvastatin Calcium 10 MG TAB PO SCH (21:21)
--- NOTE | 2017-03-30 21:41 | Progress Notes ---
DATE: 03/30/2017 Case was discussed with staff of the patient, reviewed records. The patient continues to have episodes of yelling and screaming though she is little bit calmer and she is easier to talk to, so today, I was able to ask her about her smoking, she said she does not smoke. She reports she got the flu vaccine. She reported that she does not feel she needs any one to make decisions for her that she is the one who make the decisions, she is over 65. She is 69 years of age, does not understand that she needs someone to sign. The patient has poor insight. The patient's current medications include Tylenol 650 mg as needed and amantadine 100 mg twice a day, atorvastatin 10 mg at bedtime, baclofen 20 mg twice a day, Sinemet one tablet twice a day, Coreg 12.5 mg twice a day, clonidine 0.1 mg every 6 hours as needed for blood pressure. She is also on Colace 250 mg daily and Lexapro 10 mg at bedtime, fish oil omega 3 1000 mg tablets twice a day, guaifenesin 200 mg every 8 hours as needed, levothyroxine 0.15 mcg every other day and she is on Namenda 10 mg twice a day, multivitamin 1 tablet daily, and Zyprexa 5 mg in the morning and 7.5 mg at bedtime, oxycodone immediate release 5 mg every 8 hours as needed and tramadol 50 mg every 8 hours as needed and Ambien 5 mg at bedtime as needed. The patient did get the flu vaccine. The patient continues to be unpredictable, impulsive, demanding, loud, unable to make safe plan for self-care, very poor insight, easily agitated. I did increase her Zyprexa dose yesterday with no side effects, no sedation, no nausea, no extrapyramidal symptoms. We will continue the patient in group therapy, milieu therapy, and adjust medications as needed. JOB# [id number]
[2017-03-31] MEDS ORDERED: Haloperidol Lactate 5 mg/mL 1mL Vial IM PRN (07:11)
[2017-03-31] MEDS ORDERED: Haloperidol Lactate 5 mg/mL 1mL Vial ONE (07:12)
--- NOTE | 2017-03-31 07:59 | Progress Notes ---
DATE: 03/31/2017 SUBJECTIVE: The patient was seen today 03/31/2017. The patient with pneumonia, yelling and screaming episodes, depression, feeling overwhelmed, fixated on leaving the hospital, wants to go back to "[place]" in loud voice". The patient is yelling, screaming, confused, disoriented. Sleeping fairly well. ASSESSMENT: The patient with continued behaviors, yelling, screaming, difficult to speak with her because she is fixated on leaving. "I want to leave today". Medications were reviewed including doses and frequencies. ASSESSMENT: The patient remains unpredictable, impulsive, demanding, loud. PLAN: We will continue to monitor and follow up. We will defer discharge planning to Dr. Spencer. The patient seems to be tolerating current dosages of medications. JOB# [id number]
[2017-03-31] MEDS: Fish Oil 1,000 MG SGL PO SCH ×4 (09:30→17:19)
[2017-03-31] MEDS: Multivitamin Tab PO SCH (09:41)
[2017-03-31] MEDS: POLYETHYLENE GLYCOL 3350 17 GM PACK PO SCH (09:41)
[2017-03-31] MEDS: Acetaminophen 500 MG TAB PO SCH ×3 (09:43→20:39)
--- NOTE | 2017-03-31 12:19 | Internal Medicine Prog Note ---
Internal Medicine Subjective - Subjective Service Date: 03/31/17 Patient is:: awake, verbal, interactive, agitated, confused Patient Complaints of:: congestion, cough Per staff patient has:: no adverse event, noncompliant, tolerating meds Internal Medicine Objective - Physical Exam Vitals and I&O: Vital Signs Temp 97.8 F 03/31/17 06:21 Pulse 63 03/31/17 09:44 Resp 19 03/31/17 06:21 BP 142/76 03/31/17 09:44 Pulse Ox 98 03/31/17 06:21 Intake & Output 03/30/17 03/31/17 03/31/17 18:59 06:59 18:59 Intake Total 240 Balance 240 Intake: Oral 240 Other: # Voids 2 # Bowel Movements 0 Active Medications: Current Medications Acetaminophen (Tylenol) 650 mg PO Q4HR PRN PRN Reason: Mild Pain / Temp above 100 Stop: 05/21/17 23:27 Acetaminophen (Tylenol Extra Strength) 500 mg PO TID [facility] Stop: 05/22/17 08:59 Last Admin: 03/31/17 09:43 Dose: 500 mg Al Hydrox/Mg Hydrox/Simethicone (Maalox) 30 ml PO Q4HR PRN PRN Reason: GI DISTRESS Stop: 05/21/17 23:27 Amantadine HCl (Symmetrel) 100 mg PO BID [facility] Stop: 05/22/17 08:59 Last Admin: 03/31/17 09:42 Dose: 100 mg Atorvastatin Calcium (Lipitor) 10 mg PO HS KEN PRN Reason: Protocol Stop: 05/22/17 20:59 Last Admin: 03/30/17 21:21 Dose: 10 mg Baclofen (Lioresal) 20 mg PO BID [facility] Stop: 05/22/17 08:59 Last Admin: 03/31/17 09:40 Dose: 20 mg Carbidopa/Levodopa (Sinemet 25mg-100 Mg) 1 tab PO BID [facility] Stop: 05/22/17 08:59 Last Admin: 03/31/17 09:42 Dose: 1 tab Carvedilol (Coreg) 12.5 mg PO BID [facility] Stop: 05/23/17 16:59 Last Admin: 03/31/17 09:44 Dose: 12.5 mg Diphenhydramine HCl (Benadryl 50 Mg/Ml) 50 mg IM STAT PRN PRN Reason: Agitation Stop: 05/30/17 07:15 Docusate Sodium (Colace) 250 mg PO DAILY KEN Stop: 05/22/17 08:59 Last Admin: 03/31/17 09:44 Dose: 250 mg Escitalopram Oxalate (Lexapro) 10 mg PO HS KEN PRN Reason: Protocol Stop: 05/22/17 20:59 Last Admin: 03/30/17 21:43 Dose: 10 mg Fish Oil ([place] 3) 1,000 mg PO BID KEN Stop: 05/22/17 08:59 Last Admin: 03/31/17 09:41 Dose: 1,000 mg Guaifenesin (Robitussin) 200 mg PO Q8HR PRN PRN Reason: Cough or Congestion Stop: 05/21/17 23:54 Last Admin: 03/24/17 13:31 Dose: 200 mg Haloperidol Lactate (Haldol) 5 mg IM STAT PRN PRN Reason: Agitation Stop: 05/30/17 07:15 Levothyroxine Sodium 0.1 mg/ (Levothyroxine Sodium 0.05 mg) 0.15 mg PO QDAC KEN Stop: 05/25/17 09:44 Last Admin: 03/31/17 06:41 Dose: 0.15 mg Lorazepam (Ativan) 0.5 mg PO DAILY PRN; Protocol PRN Reason: Anxiety Stop: 05/22/17 13:01 Last Admin: 03/29/17 20:23 Dose: 0.5 mg Lorazepam (Ativan) 2 mg IM STAT PRN; Protocol PRN Reason: Agitation Stop: 05/30/17 07:15 Magnesium Hydroxide (Milk Of Magnesia) 30 ml PO Q6H PRN PRN Reason: Constipation Stop: 05/22/17 13:01 Memantine (Namenda) 10 mg PO BID KEN Stop: 05/27/17 08:59 Last Admin: 03/31/17 09:43 Dose: 10 mg Multivitamins/Vitamin C (Theragran) 1 tab PO DAILY KEN Stop: 05/22/17 08:59 Last Admin: 03/31/17 09:41 Dose: 1 tab Olanzapine (Zyprexa) 5 mg PO QAM KEN PRN Reason: Protocol Stop: 05/25/17 12:38 Last Admin: 03/31/17 09:43 Dose: 5 mg Olanzapine (Zyprexa) 7.5 mg PO HS KEN PRN Reason: Protocol Stop: 05/28/17 12:17 Last Admin: 03/30/17 21:22 Dose: 7.5 mg Oxycodone HCl (Oxycodone Ir) 5 mg PO Q8H PRN PRN Reason: Pain (Moderate) Stop: 05/22/17 00:14 Polyethylene Glycol (Miralax) 17 gm PO DAILY KEN Stop: 05/22/17 08:59 Last Admin: 03/31/17 09:41 Dose: 17 gm Tramadol HCl (Ultram) 50 mg PO Q8H PRN PRN Reason: leg pain Stop: 05/21/17 23:54 Zolpidem Tartrate (Ambien) 5 mg PO HS PRN PRN Reason: Insomnia Stop: 05/21/17 23:27 Last Admin: 03/30/17 21:21 Dose: 5 mg General: alert HEENT: NC/AT, PERRLA Neck: Supple Lungs: CTAB Cardiovascular: RRR, without murmur Abdomen: soft, non-tender, non-distended, positive bowel sound Extremities: excoriation Neurological: alert - Procedures Procedures: Procedures Procedure Code Date INDIVID PSYCHOTHERAP NEC 94.39 07/29/08 OTHER GROUP THERAPY 94.44 09/09/14 RECREATIONAL THERAPY 93.81 07/29/08 Internal Medicine Assmt/Plan - Assessment Assessment: HTN HYPERCHOLESTEREMIA SCHIZOAFFECTIVE PARKINSON'S HYPOTHYROIDISM - Plan Plan: fall precautions safety precautions continue current plan of care Nutritional Asmnt/Malnutr-PDOC - Dietary Evaluation Malnutrition Findings (Please click <Entered> for more info): Nutritional Asmnt/Malnutrition Start: 03/28/17 15: 31 Text: Status: Complete Freq: Document 03/28/17 15:31 LCHENG (Rec: 03/28/17 15:37 [email or web address]) Nutritional Asmnt/Malnutrition Patient General Information Nutritional Screening Moderate Risk Diagnosis psychosis Pertinent Medical Hx/Surgical Hx HTN, hypercholesterolemia, schizophrenia, pankinson/s disease, dementia, hypothyroidism Subjective Information Pt seen lying in bed, awake. Pt reported good appetite, has difficulty to chew rice, like herbal tea instead of coffee. pt has partial teeth noted. Per notes, PO intake 100%. Current Diet Order/ Nutrition Support no added salt 4 gm Pertinent Medications colcace, omega 3, levothyroxine, theragran Pertinent Labs no labs Nutritional Hx/Data Height 5 ft 6 in Height (Calculated Centimeters) 167.6 Current Weight (lbs) 218 lb Weight (Calculated Kilograms) 98.9 Weight (Calculated Grams) 94898.1 [place] Body Weight 130 % [place] Body Weight 168 Body Mass Index (BMI) 35.2 Weight Status Obese GI Symptoms GI Symptoms None Last BM 03/28 Difficult in: None Skin Integrity/Comment: intact Current %PO Good (75-100%) Estimated Nutritional Goals BEE in Kcals: Adj wt of IBW Calories/Kcals/Kg 25-30 Kcals Calculated 7191-1031 based on adj wt 69kg Protein: Adj wt of IBW Protein g/k Protein Calculated 69 Fluid: ml Nutritional Problem 1. Problem Problem obesity Etiology possible excessive energy intake Signs/Symptoms: BMI 35 Malnutrition Alert Protein-Calorie Malnutrition N/A Is there a minimum of two criteria No selected? Query Text:Check all the applicable criteria. A minimum of two criteria are recommended for diagnosis of either severe or non-severe malnutrition. Intervention/Recommendation Comments 1. Continue with current diet as ordered. Notified assistant professor of dietetics and updated pt food preference 2. Monitor PO intake, wt weekly, and skin integrity 3. F/U as low risk in 7 days, 04/04 Expected Outcomes/Goals Expected Outcomes/Goals 1. PO intake to meet at least 75% of nutritional needs. 2. Wt stability, skin to remain intact
[2017-03-31] MEDS: Atorvastatin Calcium 10 MG TAB PO SCH (20:33)
[2017-04-01] MEDS: Multivitamin Tab PO SCH (08:08)
[2017-04-01] MEDS: Fish Oil 1,000 MG SGL PO SCH ×2 (08:09→16:09)
[2017-04-01] MEDS: Acetaminophen 500 MG TAB PO SCH ×3 (08:10→20:57)
[2017-04-01] MEDS: POLYETHYLENE GLYCOL 3350 17 GM PACK PO SCH ×2 (08:11→08:23)
--- NOTE | 2017-04-01 08:43 | Progress Notes ---
DATE: 04/01/2017 SUBJECTIVE: The patient is seen on 04/01/2017, agitated, confused, fixated on leaving, states she wants to leave immediately, wants to go home for [place], but it is unclear whether she has a place to go or not and that is the problem. Social work is not here for confirmation of placement. The patient is with ongoing behaviors, loud, irritable, still with yelling and screaming episodes, disorientation, difficult to calm her down. MEDICATIONS: Reviewed including doses and frequencies. ASSESSMENT: The patient remains symptomatic, still loud, yelling episodes, impulsive. PLAN: We will continue to monitor; given her ongoing symptoms, she is not safe for discharge at this time. [facility]# [id number]
--- NOTE | 2017-04-01 14:10 | Internal Medicine Prog Note ---
Internal Medicine Subjective - Subjective Service Date: 04/01/17 Patient is:: awake, verbal, interactive, agitated, confused Patient Complaints of:: congestion, cough Per staff patient has:: no adverse event, noncompliant, tolerating meds Internal Medicine Objective - Physical Exam Vitals and I&O: Vital Signs Temp 98.4 F 04/01/17 06:27 Pulse 63 04/01/17 08:08 Resp 20 04/01/17 06:27 BP 190/100 04/01/17 08:08 Pulse Ox 98 04/01/17 06:27 Intake & Output 03/31/17 04/01/17 04/01/17 18:59 06:59 18:59 Intake Total 950 480 Balance 950 480 Intake: Oral 950 480 Other: # Voids 5 2 # Bowel Movements 2 Active Medications: Current Medications Acetaminophen (Tylenol) 650 mg PO Q4HR PRN PRN Reason: Mild Pain / Temp above 100 Stop: 05/21/17 23:27 Acetaminophen (Tylenol Extra Strength) 500 mg PO TID [facility] Stop: 05/22/17 08:59 Last Admin: 04/01/17 13:45 Dose: 500 mg Al Hydrox/Mg Hydrox/Simethicone (Maalox) 30 ml PO Q4HR PRN PRN Reason: GI DISTRESS Stop: 05/21/17 23:27 Amantadine HCl (Symmetrel) 100 mg PO BID [facility] Stop: 05/22/17 08:59 Last Admin: 04/01/17 08:08 Dose: 100 mg Atorvastatin Calcium (Lipitor) 10 mg PO HS [facility] PRN Reason: Protocol Stop: 05/22/17 20:59 Last Admin: 03/31/17 20:33 Dose: 10 mg Baclofen (Lioresal) 20 mg PO BID [facility] Stop: 05/22/17 08:59 Last Admin: 04/01/17 08:08 Dose: 20 mg Carbidopa/Levodopa (Sinemet 25mg-100 Mg) 1 tab PO BID [facility] Stop: 05/22/17 08:59 Last Admin: 04/01/17 08:09 Dose: 1 tab Carvedilol (Coreg) 12.5 mg PO BID [facility] Stop: 05/23/17 16:59 Last Admin: 04/01/17 08:08 Dose: 12.5 mg Diphenhydramine HCl (Benadryl 50 Mg/Ml) 50 mg IM STAT PRN PRN Reason: Agitation Stop: 05/30/17 07:15 Docusate Sodium (Colace) 250 mg PO DAILY KEN Stop: 05/22/17 08:59 Last Admin: 04/01/17 08:08 Dose: 250 mg Escitalopram Oxalate (Lexapro) 10 mg PO HS KEN PRN Reason: Protocol Stop: 05/22/17 20:59 Last Admin: 04/01/17 00:36 Dose: 10 mg Fish Oil ([place] 3) 1,000 mg PO BID [facility] Stop: 05/22/17 08:59 Last Admin: 04/01/17 08:09 Dose: 1,000 mg Guaifenesin (Robitussin) 200 mg PO Q8HR PRN PRN Reason: Cough or Congestion Stop: 05/21/17 23:54 Last Admin: 03/24/17 13:31 Dose: 200 mg Haloperidol Lactate (Haldol) 5 mg IM STAT PRN PRN Reason: Agitation Stop: 05/30/17 07:15 Levothyroxine Sodium 0.1 mg/ (Levothyroxine Sodium 0.05 mg) 0.15 mg PO QDAC KEN Stop: 05/25/17 09:44 Last Admin: 03/31/17 06:41 Dose: 0.15 mg Lorazepam (Ativan) 0.5 mg PO DAILY PRN; Protocol PRN Reason: Anxiety Stop: 05/22/17 13:01 Last Admin: 03/29/17 20:23 Dose: 0.5 mg Lorazepam (Ativan) 2 mg IM STAT PRN; Protocol PRN Reason: Agitation Stop: 05/30/17 07:15 Magnesium Hydroxide (Milk Of Magnesia) 30 ml PO Q6H PRN PRN Reason: Constipation Stop: 05/22/17 13:01 Memantine (Namenda) 10 mg PO BID KEN Stop: 05/27/17 08:59 Last Admin: 04/01/17 08:09 Dose: 10 mg Multivitamins/Vitamin C (Theragran) 1 tab PO DAILY KEN Stop: 05/22/17 08:59 Last Admin: 04/01/17 08:08 Dose: 1 tab Olanzapine (Zyprexa) 5 mg PO QAM KEN PRN Reason: Protocol Stop: 05/25/17 12:38 Last Admin: 04/01/17 08:11 Dose: 5 mg Olanzapine (Zyprexa) 7.5 mg PO HS KEN PRN Reason: Protocol Stop: 05/28/17 12:17 Last Admin: 03/31/17 20:37 Dose: 7.5 mg Oxycodone HCl (Oxycodone Ir) 5 mg PO Q8H PRN PRN Reason: Pain (Moderate) Stop: 05/22/17 00:14 Polyethylene Glycol (Miralax) 17 gm PO DAILY KEN Stop: 05/22/17 08:59 Last Admin: 04/01/17 08:23 Dose: Not Given Tramadol HCl (Ultram) 50 mg PO Q8H PRN PRN Reason: leg pain Stop: 05/21/17 23:54 Zolpidem Tartrate (Ambien) 5 mg PO HS PRN PRN Reason: Insomnia Stop: 05/21/17 23:27 Last Admin: 03/30/17 21:21 Dose: 5 mg General: alert HEENT: NC/AT, PERRLA Neck: Supple Lungs: CTAB Cardiovascular: RRR, without murmur Abdomen: soft, non-tender, non-distended, positive bowel sound Extremities: excoriation Neurological: alert - Procedures Procedures: Procedures Procedure Code Date INDIVID PSYCHOTHERAP NEC 94.39 07/29/08 OTHER GROUP THERAPY 94.44 09/09/14 RECREATIONAL THERAPY 93.81 07/29/08 Internal Medicine Assmt/Plan - Assessment Assessment: HTN HYPERCHOLESTEREMIA SCHIZOAFFECTIVE PARKINSON'S HYPOTHYROIDISM - Plan Plan: fall precautions safety precautions continue current plan of care Nutritional Asmnt/Malnutr-PDOC - Dietary Evaluation Malnutrition Findings (Please click <Entered> for more info): Nutritional Asmnt/Malnutrition Start: 03/28/17 15: 31 Text: Status: Complete Freq: Document 03/28/17 15:31 LCHENG (Rec: 03/28/17 15:37 [email or web address] [email or web address]) Nutritional Asmnt/Malnutrition Patient General Information Nutritional Screening Moderate Risk Diagnosis psychosis Pertinent Medical Hx/Surgical Hx HTN, hypercholesterolemia, schizophrenia, pankinson/s disease, dementia, hypothyroidism Subjective Information Pt seen lying in bed, awake. Pt reported good appetite, has difficulty to chew rice, like herbal tea instead of coffee. pt has partial teeth noted. Per notes, PO intake 100%. Current Diet Order/ Nutrition Support no added salt 4 gm Pertinent Medications colcace, omega 3, levothyroxine, theragran Pertinent Labs no labs Nutritional Hx/Data Height 5 ft 6 in Height (Calculated Centimeters) 167.6 Current Weight (lbs) 218 lb Weight (Calculated Kilograms) 98.9 Weight (Calculated Grams) 87802.1 [place] Body Weight 130 % [place] Body Weight 168 Body Mass Index (BMI) 35.2 Weight Status Obese GI Symptoms GI Symptoms None Last BM 03/28 Difficult in: None Skin Integrity/Comment: intact Current %PO Good (75-100%) Estimated Nutritional Goals BEE in Kcals: Adj wt of IBW Calories/Kcals/Kg 25-30 Kcals Calculated 2447-8922 based on adj wt 69kg Protein: Adj wt of IBW Protein g/k Protein Calculated 69 Fluid: ml 8537-2613 Nutritional Problem 1. Problem Problem obesity Etiology possible excessive energy intake Signs/Symptoms: BMI 35 Malnutrition Alert Protein-Calorie Malnutrition N/A Is there a minimum of two criteria No selected? Query Text:Check all the applicable criteria. A minimum of two criteria are recommended for diagnosis of either severe or non-severe malnutrition. Intervention/Recommendation Comments 1. Continue with current diet as ordered. Notified dietary supervisor and updated pt food preference 2. Monitor PO intake, wt weekly, and skin integrity 3. F/U as low risk in 7 days, 04/04 Expected Outcomes/Goals Expected Outcomes/Goals 1. PO intake to meet at least 75% of nutritional needs. 2. Wt stability, skin to remain intact
[2017-04-01] MEDS: Atorvastatin Calcium 10 MG TAB PO SCH (20:57)
[2017-04-02] MEDS: Acetaminophen 500 MG TAB PO SCH ×3 (08:07→20:47)
[2017-04-02] MEDS: Multivitamin Tab PO SCH (08:14)
[2017-04-02] MEDS: Fish Oil 1,000 MG SGL PO SCH ×2 (08:14→16:32)
[2017-04-02] MEDS: POLYETHYLENE GLYCOL 3350 17 GM PACK PO SCH (08:34)
--- NOTE | 2017-04-02 11:44 | Internal Medicine Prog Note ---
Internal Medicine Subjective - Subjective Service Date: 04/02/17 Patient is:: awake, verbal, interactive, agitated, confused Patient Complaints of:: congestion, cough Per staff patient has:: no adverse event, noncompliant, tolerating meds Internal Medicine Objective - Physical Exam Vitals and I&O: Vital Signs Temp 97.4 F 04/02/17 06:46 Pulse 63 04/02/17 08:14 Resp 18 04/02/17 06:46 BP 175/87 04/02/17 08:14 Pulse Ox 95 04/02/17 06:46 Intake & Output 04/01/17 04/02/17 04/02/17 18:59 06:59 18:59 Intake Total 950 240 Output Total 1 Balance 950 239 Intake: Oral 950 240 Output: Stool 1 Other: # Voids 4 1 # Bowel Movements 2 Active Medications: Current Medications Acetaminophen (Tylenol) 650 mg PO Q4HR PRN PRN Reason: Mild Pain / Temp above 100 Stop: 05/21/17 23:27 Acetaminophen (Tylenol Extra Strength) 500 mg PO TID [facility] Stop: 05/22/17 08:59 Last Admin: 04/02/17 08:07 Dose: 500 mg Al Hydrox/Mg Hydrox/Simethicone (Maalox) 30 ml PO Q4HR PRN PRN Reason: GI DISTRESS Stop: 05/21/17 23:27 Amantadine HCl (Symmetrel) 100 mg PO BID [facility] Stop: 05/22/17 08:59 Last Admin: 04/02/17 08:15 Dose: 100 mg Atorvastatin Calcium (Lipitor) 10 mg PO HS [facility] PRN Reason: Protocol Stop: 05/22/17 20:59 Last Admin: 04/01/17 20:57 Dose: 10 mg Baclofen (Lioresal) 20 mg PO BID [facility] Stop: 05/22/17 08:59 Last Admin: 04/02/17 08:07 Dose: 20 mg Carbidopa/Levodopa (Sinemet 25mg-100 Mg) 1 tab PO BID [facility] Stop: 05/22/17 08:59 Last Admin: 04/02/17 08:08 Dose: 1 tab Carvedilol (Coreg) 12.5 mg PO BID [facility] Stop: 05/23/17 16:59 Last Admin: 04/02/17 08:14 Dose: 12.5 mg Diphenhydramine HCl (Benadryl 50 Mg/Ml) 50 mg IM STAT PRN PRN Reason: Agitation Stop: 05/30/17 07:15 Docusate Sodium (Colace) 250 mg PO DAILY [facility] Stop: 05/22/17 08:59 Last Admin: 04/02/17 08:08 Dose: 250 mg Escitalopram Oxalate (Lexapro) 10 mg PO HS KEN PRN Reason: Protocol Stop: 05/22/17 20:59 Last Admin: 04/01/17 20:58 Dose: 10 mg Fish Oil ([place] 3) 1,000 mg PO BID [facility] Stop: 05/22/17 08:59 Last Admin: 04/02/17 08:14 Dose: 1,000 mg Guaifenesin (Robitussin) 200 mg PO Q8HR PRN PRN Reason: Cough or Congestion Stop: 05/21/17 23:54 Last Admin: 03/24/17 13:31 Dose: 200 mg Haloperidol Lactate (Haldol) 5 mg IM STAT PRN PRN Reason: Agitation Stop: 05/30/17 07:15 Levothyroxine Sodium 0.1 mg/ (Levothyroxine Sodium 0.05 mg) 0.15 mg PO QDAC [facility] Stop: 05/25/17 09:44 Last Admin: 04/02/17 08:13 Dose: 0.15 mg Lorazepam (Ativan) 0.5 mg PO DAILY PRN; Protocol PRN Reason: Anxiety Stop: 05/22/17 13:01 Last Admin: 03/29/17 20:23 Dose: 0.5 mg Lorazepam (Ativan) 2 mg IM STAT PRN; Protocol PRN Reason: Agitation Stop: 05/30/17 07:15 Magnesium Hydroxide (Milk Of Magnesia) 30 ml PO Q6H PRN PRN Reason: Constipation Stop: 05/22/17 13:01 Memantine (Namenda) 10 mg PO BID [facility] Stop: 05/27/17 08:59 Last Admin: 04/02/17 08:08 Dose: 10 mg Multivitamins/Vitamin C (Theragran) 1 tab PO DAILY [facility] Stop: 05/22/17 08:59 Last Admin: 04/02/17 08:14 Dose: 1 tab Olanzapine (Zyprexa) 5 mg PO QAM KEN PRN Reason: Protocol Stop: 05/25/17 12:38 Last Admin: 04/02/17 08:14 Dose: 5 mg Olanzapine (Zyprexa) 7.5 mg PO HS KEN PRN Reason: Protocol Stop: 05/28/17 12:17 Last Admin: 04/01/17 20:56 Dose: 7.5 mg Oxycodone HCl (Oxycodone Ir) 5 mg PO Q8H PRN PRN Reason: Pain (Moderate) Stop: 05/22/17 00:14 Polyethylene Glycol (Miralax) 17 gm PO DAILY KEN Stop: 05/22/17 08:59 Last Admin: 04/02/17 08:34 Dose: Not Given Tramadol HCl (Ultram) 50 mg PO Q8H PRN PRN Reason: leg pain Stop: 05/21/17 23:54 Zolpidem Tartrate (Ambien) 5 mg PO HS PRN PRN Reason: Insomnia Stop: 05/21/17 23:27 Last Admin: 04/01/17 21:06 Dose: 5 mg General: alert HEENT: NC/AT, PERRLA Neck: Supple Lungs: CTAB Cardiovascular: RRR, without murmur Abdomen: soft, non-tender, non-distended, positive bowel sound Extremities: excoriation Neurological: alert - Procedures Procedures: Procedures Procedure Code Date INDIVID PSYCHOTHERAP NEC 94.39 07/29/08 OTHER GROUP THERAPY 94.44 09/09/14 RECREATIONAL THERAPY 93.81 07/29/08 Internal Medicine Assmt/Plan - Assessment Assessment: HTN HYPERCHOLESTEREMIA SCHIZOAFFECTIVE PARKINSON'S HYPOTHYROIDISM - Plan Plan: fall precautions safety precautions continue current plan of care Nutritional Asmnt/Malnutr-PDOC - Dietary Evaluation Malnutrition Findings (Please click <Entered> for more info): Nutritional Asmnt/Malnutrition Start: 03/28/17 15: 31 Text: Status: Complete Freq: Document 03/28/17 15:31 MARCELA (Rec: 03/28/17 15:37 [email or web address]) Nutritional Asmnt/Malnutrition Patient General Information Nutritional Screening Moderate Risk Diagnosis psychosis Pertinent Medical Hx/Surgical Hx HTN, hypercholesterolemia, schizophrenia, pankinson/s disease, dementia, hypothyroidism Subjective Information Pt seen lying in bed, awake. Pt reported good appetite, has difficulty to chew rice, like herbal tea instead of coffee. pt has partial teeth noted. Per notes, PO intake 100%. Current Diet Order/ Nutrition Support no added salt 4 gm Pertinent Medications colcace, omega 3, levothyroxine, theragran Pertinent Labs no labs Nutritional Hx/Data Height 5 ft 6 in Height (Calculated Centimeters) 167.6 Current Weight (lbs) 218 lb Weight (Calculated Kilograms) 98.9 Weight (Calculated Grams) 04901.1 [place] Body Weight 130 % [place] Body Weight 168 Body Mass Index (BMI) 35.2 Weight Status Obese GI Symptoms GI Symptoms None Last BM 03/28 Difficult in: None Skin Integrity/Comment: intact Current %PO Good (75-100%) Estimated Nutritional Goals BEE in Kcals: Adj wt of IBW Calories/Kcals/Kg 25-30 Kcals Calculated 1034-5433 based on adj wt 69kg Protein: Adj wt of IBW Protein g/k Protein Calculated 69 Fluid: ml Nutritional Problem 1. Problem Problem obesity Etiology possible excessive energy intake Signs/Symptoms: BMI 35 Malnutrition Alert Protein-Calorie Malnutrition N/A Is there a minimum of two criteria No selected? Query Text:Check all the applicable criteria. A minimum of two criteria are recommended for diagnosis of either severe or non-severe malnutrition. Intervention/Recommendation Comments 1. Continue with current diet as ordered. Notified parts order and stock clerk and updated pt food preference 2. Monitor PO intake, wt weekly, and skin integrity 3. F/U as low risk in 7 days, 04/04 Expected Outcomes/Goals Expected Outcomes/Goals 1. PO intake to meet at least 75% of nutritional needs. 2. Wt stability, skin to remain intact
[2017-04-02] MEDS: Atorvastatin Calcium 10 MG TAB PO SCH (20:46)
--- NOTE | 2017-04-03 03:59 | Progress Notes ---
DATE: 04/02/[address] Newton covering for Dr. Spencer. SUBJECTIVE: The patient was seen and evaluated. The patient's chart reviewed. Overnight, nursing staff reported that the patient continues to intermittently scream and yell, and needing a lot of redirection. Today, on [id number] evaluation, the patient is mostly fixated about leaving the facility and reports that she wants to have the review, but unable to give much more information beyond that. We discussed with her and informed her to continue following up with the mental health social worker and being able to coordinate with the logistics associated with it, but she still continues to be intermittently yelling and screaming episodes and difficult to orient and difficult to calm her down. ASSESSMENT AND PLAN: The patient continues to be easily irritable, intermittently yelling, exacerbating the patient's mood. We will continue with primary psychiatrist's treatment plan and goals, which includes olanzapine 5 in the morning and 7.5 at nighttime, Namenda at 10 mg b.i.d., and Lexapro 10 mg a day as the the patient is still intermittently labile and impulsive behavior, she is unable to formulate a safe plan outside of a structured environment. JOB# [id number]
[2017-04-03] MEDS: Acetaminophen 500 MG TAB PO SCH ×3 (08:56→21:01)
[2017-04-03] MEDS: POLYETHYLENE GLYCOL 3350 17 GM PACK PO SCH (08:59)
[2017-04-03] MEDS: Multivitamin Tab PO SCH (08:59)
[2017-04-03] MEDS: Fish Oil 1,000 MG SGL PO SCH ×2 (08:59→16:53)
--- NOTE | 2017-04-03 12:51 | Internal Medicine Prog Note ---
Internal Medicine Subjective - Subjective Service Date: 04/03/17 Patient is:: awake, verbal, interactive, agitated, confused Patient Complaints of:: congestion, cough Per staff patient has:: no adverse event, noncompliant, tolerating meds Internal Medicine Objective - Physical Exam Vitals and I&O: Vital Signs Temp 98.1 F 04/03/17 06:12 Pulse 63 04/03/17 08:58 Resp 18 04/03/17 06:12 BP 154/79 04/03/17 08:58 Pulse Ox 95 04/03/17 06:12 Intake & Output 04/02/17 04/03/17 04/03/17 18:59 06:59 18:59 Intake Total 1200 Balance 1200 Intake: Oral 1200 Other: # Voids 3 # Bowel Movements 0 Active Medications: Current Medications Acetaminophen (Tylenol) 650 mg PO Q4HR PRN PRN Reason: Mild Pain / Temp above 100 Stop: 05/21/17 23:27 Acetaminophen (Tylenol Extra Strength) 500 mg PO TID [facility] Stop: 05/22/17 08:59 Last Admin: 04/03/17 08:56 Dose: 500 mg Al Hydrox/Mg Hydrox/Simethicone (Maalox) 30 ml PO Q4HR PRN PRN Reason: GI DISTRESS Stop: 05/21/17 23:27 Amantadine HCl (Symmetrel) 100 mg PO BID [facility] Stop: 05/22/17 08:59 Last Admin: 04/03/17 08:58 Dose: 100 mg Atorvastatin Calcium (Lipitor) 10 mg PO HS KEN PRN Reason: Protocol Stop: 05/22/17 20:59 Last Admin: 04/02/17 20:46 Dose: 10 mg Baclofen (Lioresal) 20 mg PO BID [facility] Stop: 05/22/17 08:59 Last Admin: 04/03/17 08:58 Dose: 20 mg Carbidopa/Levodopa (Sinemet 25mg-100 Mg) 1 tab PO BID [facility] Stop: 05/22/17 08:59 Last Admin: 04/03/17 08:58 Dose: 1 tab Carvedilol (Coreg) 12.5 mg PO BID [facility] Stop: 05/23/17 16:59 Last Admin: 04/03/17 08:58 Dose: 12.5 mg Diphenhydramine HCl (Benadryl 50 Mg/Ml) 50 mg IM STAT PRN PRN Reason: Agitation Stop: 05/30/17 07:15 Docusate Sodium (Colace) 250 mg PO DAILY KEN Stop: 05/22/17 08:59 Last Admin: 04/03/17 08:59 Dose: 250 mg Escitalopram Oxalate (Lexapro) 10 mg PO HS KEN PRN Reason: Protocol Stop: 05/22/17 20:59 Last Admin: 04/02/17 20:47 Dose: 10 mg Fish Oil ([place] 3) 1,000 mg PO BID [facility] Stop: 05/22/17 08:59 Last Admin: 04/03/17 08:59 Dose: 1,000 mg Guaifenesin (Robitussin) 200 mg PO Q8HR PRN PRN Reason: Cough or Congestion Stop: 05/21/17 23:54 Last Admin: 03/24/17 13:31 Dose: 200 mg Haloperidol Lactate (Haldol) 5 mg IM STAT PRN PRN Reason: Agitation Stop: 05/30/17 07:15 Levothyroxine Sodium 0.1 mg/ (Levothyroxine Sodium 0.05 mg) 0.15 mg PO QDAC [facility]EN Stop: 05/25/17 09:44 Last Admin: 04/03/17 06:37 Dose: 0.15 mg Lorazepam (Ativan) 0.5 mg PO DAILY PRN; Protocol PRN Reason: Anxiety Stop: 05/22/17 13:01 Last Admin: 03/29/17 20:23 Dose: 0.5 mg Lorazepam (Ativan) 2 mg IM STAT PRN; Protocol PRN Reason: Agitation Stop: 05/30/17 07:15 Magnesium Hydroxide (Milk Of Magnesia) 30 ml PO Q6H PRN PRN Reason: Constipation Stop: 05/22/17 13:01 Memantine (Namenda) 10 mg PO BID [facility] Stop: 05/27/17 08:59 Last Admin: 04/03/17 08:59 Dose: 10 mg Multivitamins/Vitamin C (Theragran) 1 tab PO DAILY [facility]EN Stop: 05/22/17 08:59 Last Admin: 04/03/17 08:59 Dose: 1 tab Olanzapine (Zyprexa) 5 mg PO QAM KEN PRN Reason: Protocol Stop: 05/25/17 12:38 Last Admin: 04/03/17 08:59 Dose: 5 mg Olanzapine (Zyprexa) 10 mg PO HS KEN PRN Reason: Protocol Stop: 06/02/17 11:32 Oxycodone HCl (Oxycodone Ir) 5 mg PO Q8H PRN PRN Reason: Pain (Moderate) Stop: 05/22/17 00:14 Polyethylene Glycol (Miralax) 17 gm PO DAILY KEN Stop: 05/22/17 08:59 Last Admin: 04/03/17 08:59 Dose: 17 gm Tramadol HCl (Ultram) 50 mg PO Q8H PRN PRN Reason: leg pain Stop: 05/21/17 23:54 Zolpidem Tartrate (Ambien) 5 mg PO HS PRN PRN Reason: Insomnia Stop: 05/21/17 23:27 Last Admin: 04/02/17 20:45 Dose: 5 mg General: alert HEENT: NC/AT, PERRLA Neck: Supple Lungs: CTAB Cardiovascular: RRR, without murmur Abdomen: soft, non-tender, non-distended, positive bowel sound Extremities: excoriation Neurological: alert - Procedures Procedures: Procedures Procedure Code Date INDIVID PSYCHOTHERAP NEC 94.39 07/29/08 OTHER GROUP THERAPY 94.44 09/09/14 RECREATIONAL THERAPY 93.81 07/29/08 Internal Medicine Assmt/Plan - Assessment Assessment: HTN HYPERCHOLESTEREMIA SCHIZOAFFECTIVE PARKINSON'S HYPOTHYROIDISM - Plan Plan: fall precautions safety precautions continue current plan of care Nutritional Asmnt/Malnutr-PDOC - Dietary Evaluation Malnutrition Findings (Please click <Entered> for more info): Nutritional Asmnt/Malnutrition Start: 03/28/17 15: 31 Text: Status: Complete Freq: Document 03/28/17 15:31 LCHENG (Rec: 03/28/17 15:37 LCHENG [email or web address]) Nutritional Asmnt/Malnutrition Patient General Information Nutritional Screening Moderate Risk Diagnosis psychosis Pertinent Medical Hx/Surgical Hx HTN, hypercholesterolemia, schizophrenia, pankinson/s disease, dementia, hypothyroidism Subjective Information Pt seen lying in bed, awake. Pt reported good appetite, has difficulty to chew rice, like herbal tea instead of coffee. pt has partial teeth noted. Per notes, PO intake 100%. Current Diet Order/ Nutrition Support no added salt 4 gm Pertinent Medications colcace, omega 3, levothyroxine, theragran Pertinent Labs no labs Nutritional Hx/Data Height 5 ft 6 in Height (Calculated Centimeters) 167.6 Current Weight (lbs) 218 lb Weight (Calculated Kilograms) 98.9 Weight (Calculated Grams) 59417.1 [place] Body Weight 130 % [place] Body Weight 168 Body Mass Index (BMI) 35.2 Weight Status Obese GI Symptoms GI Symptoms None Last BM 03/28 Difficult in: None Skin Integrity/Comment: intact Current %PO Good (75-100%) Estimated Nutritional Goals BEE in Kcals: Adj wt of IBW Calories/Kcals/Kg 25-30 Kcals Calculated based on adj wt 69kg Protein: Adj wt of IBW Protein g/k Protein Calculated 69 Fluid: ml Nutritional Problem 1. Problem Problem obesity Etiology possible excessive energy intake Signs/Symptoms: BMI 35 Malnutrition Alert Protein-Calorie Malnutrition N/A Is there a minimum of two criteria No selected? Query Text:Check all the applicable criteria. A minimum of two criteria are recommended for diagnosis of either severe or non-severe malnutrition. Intervention/Recommendation Comments 1. Continue with current diet as ordered. Notified maintenance clerk and updated pt food preference 2. Monitor PO intake, wt weekly, and skin integrity 3. F/U as low risk in 7 days, 04/04 Expected Outcomes/Goals Expected Outcomes/Goals 1. PO intake to meet at least 75% of nutritional needs. 2. Wt stability, skin to remain intact
--- NOTE | 2017-04-03 14:35 | Progress Notes ---
DATE: 04/03/2017 Case was discussed with staff of the patient, reviewed records. The staff reports she continues to be easily agitated and demanding. Continues to have poor insight, hard to redirect, unpredictable, impulsive, needing redirection. She has been compliant with the medication with no side effects, no sedation, no nausea, no extrapyramidal symptoms. I will be increasing her Zyprexa dose to 10 mg at bedtime and keep the 5 mg in the morning to help improve with her agitation, irritability, and poor impulse control. She is also on levothyroxine, guaifenesin, fish oil, Lexapro 10 mg at bedtime, Coreg, and baclofen. No side effects with the medication, no sedation, no nausea, no extrapyramidal symptoms. We will continue the patient in group therapy, milieu therapy, and adjust medication as needed. JOB# [id number]
[2017-04-03] MEDS: Atorvastatin Calcium 10 MG TAB PO SCH (21:00)
--- NOTE | 2017-04-04 09:52 | Progress Notes ---
DATE: 04/04/2017 Case was discussed with staff of the patient, reviewed records. The patient continues to be demanding. Continues to be very irritable, loud, needing redirection, preoccupied with discharge. Unable to make safe plan for self-care, to be redirected easily. She has been compliant with the medication with no side effects, no sedation, no nausea, and no extrapyramidal symptoms. She tolerated the increase in Zyprexa with no side effects, no sedation, no nausea, and no extrapyramidal symptoms. She is still unpredictable, impulsive, continues to have poor insight. Also, tolerating increase in Namenda to 10 mg twice a day. [facility]# [id number]
[2017-04-04] MEDS: Fish Oil 1,000 MG SGL PO SCH ×2 (10:18→17:52)
[2017-04-04] MEDS: Multivitamin Tab PO SCH (10:18)
[2017-04-04] MEDS: Acetaminophen 500 MG TAB PO SCH ×3 (10:18→20:17)
[2017-04-04] MEDS: POLYETHYLENE GLYCOL 3350 17 GM PACK PO SCH (10:19)
--- NOTE | 2017-04-04 13:06 | Internal Medicine Prog Note ---
Internal Medicine Subjective - Subjective Patient seen and examined:: with staff, chart reviewed Patient is:: awake, verbal, interactive, agitated, confused Patient Complaints of:: congestion, cough Per staff patient has:: no adverse event, noncompliant, tolerating meds Internal Medicine Objective - Physical Exam Vitals and I&O: Vital Signs Temp 98.8 F 04/04/17 06:12 Pulse 75 04/04/17 10:30 Resp 20 04/04/17 06:12 BP 120/70 04/04/17 06:12 Pulse Ox 94 04/04/17 06:12 Intake & Output 04/03/17 04/04/17 04/04/17 18:59 06:59 18:59 Intake Total 890 420 Balance 890 420 Intake: Oral 890 420 Other: # Voids 4 3 # Bowel Movements 1 0 Active Medications: Current Medications Acetaminophen (Tylenol) 650 mg PO Q4HR PRN PRN Reason: Mild Pain / Temp above 100 Stop: 05/21/17 23:27 Acetaminophen (Tylenol Extra Strength) 500 mg PO TID [facility] Stop: 05/22/17 08:59 Last Admin: 04/04/17 10:18 Dose: 500 mg Al Hydrox/Mg Hydrox/Simethicone (Maalox) 30 ml PO Q4HR PRN PRN Reason: GI DISTRESS Stop: 05/21/17 23:27 Amantadine HCl (Symmetrel) 100 mg PO BID [facility] Stop: 05/22/17 08:59 Last Admin: 04/04/17 10:18 Dose: 100 mg Atorvastatin Calcium (Lipitor) 10 mg PO HS [facility] PRN Reason: Protocol Stop: 05/22/17 20:59 Last Admin: 04/03/17 21:00 Dose: 10 mg Baclofen (Lioresal) 20 mg PO BID [facility] Stop: 05/22/17 08:59 Last Admin: 04/04/17 10:17 Dose: 20 mg Carbidopa/Levodopa (Sinemet 25mg-100 Mg) 1 tab PO BID [facility] Stop: 05/22/17 08:59 Last Admin: 04/04/17 10:18 Dose: 1 tab Carvedilol (Coreg) 12.5 mg PO BID [facility] Stop: 05/23/17 16:59 Last Admin: 04/04/17 10:30 Dose: Not Given Diphenhydramine HCl (Benadryl 50 Mg/Ml) 50 mg IM STAT PRN PRN Reason: Agitation Stop: 05/30/17 07:15 Docusate Sodium (Colace) 250 mg PO DAILY [facility] Stop: 05/22/17 08:59 Last Admin: 04/04/17 10:17 Dose: 250 mg Escitalopram Oxalate (Lexapro) 10 mg PO HS [facility]EN PRN Reason: Protocol Stop: 05/22/17 20:59 Last Admin: 04/03/17 21:01 Dose: 10 mg Fish Oil ([place] 3) 1,000 mg PO BID [facility] Stop: 05/22/17 08:59 Last Admin: 04/04/17 10:18 Dose: 1,000 mg Guaifenesin (Robitussin) 200 mg PO Q8HR PRN PRN Reason: Cough or Congestion Stop: 05/21/17 23:54 Last Admin: 03/24/17 13:31 Dose: 200 mg Haloperidol Lactate (Haldol) 5 mg IM STAT PRN PRN Reason: Agitation Stop: 05/30/17 07:15 Levothyroxine Sodium 0.1 mg/ (Levothyroxine Sodium 0.05 mg) 0.15 mg PO QDAC [facility] Stop: 05/25/17 09:44 Last Admin: 04/04/17 07:02 Dose: 0.15 mg Lorazepam (Ativan) 0.5 mg PO DAILY PRN; Protocol PRN Reason: Anxiety Stop: 05/22/17 13:01 Last Admin: 04/04/17 12:16 Dose: 0.5 mg Lorazepam (Ativan) 2 mg IM STAT PRN; Protocol PRN Reason: Agitation Stop: 05/30/17 07:15 Magnesium Hydroxide (Milk Of Magnesia) 30 ml PO Q6H PRN PRN Reason: Constipation Stop: 05/22/17 13:01 Memantine (Namenda) 10 mg PO BID [facility] Stop: 05/27/17 08:59 Last Admin: 04/04/17 10:18 Dose: 10 mg Multivitamins/Vitamin C (Theragran) 1 tab PO DAILY [facility] Stop: 05/22/17 08:59 Last Admin: 04/04/17 10:18 Dose: 1 tab Olanzapine (Zyprexa) 5 mg PO QAM [facility]EN PRN Reason: Protocol Stop: 05/25/17 12:38 Last Admin: 04/04/17 10:18 Dose: 5 mg Olanzapine (Zyprexa) 10 mg PO HS [facility]EN PRN Reason: Protocol Stop: 06/02/17 11:32 Last Admin: 04/03/17 21:01 Dose: 10 mg Oxycodone HCl (Oxycodone Ir) 5 mg PO Q8H PRN PRN Reason: Pain (Moderate) Stop: 05/22/17 00:14 Polyethylene Glycol (Miralax) 17 gm PO DAILY [facility] Stop: 05/22/17 08:59 Last Admin: 04/04/17 10:19 Dose: 17 gm Tramadol HCl (Ultram) 50 mg PO Q8H PRN PRN Reason: leg pain Stop: 05/21/17 23:54 Zolpidem Tartrate (Ambien) 5 mg PO HS PRN PRN Reason: Insomnia Stop: 05/21/17 23:27 Last Admin: 04/02/17 20:45 Dose: 5 mg General: alert HEENT: NC/AT, PERRLA Neck: Supple Lungs: CTAB Cardiovascular: RRR, without murmur Abdomen: soft, non-tender, non-distended, positive bowel sound Extremities: excoriation Neurological: alert - Procedures Procedures: Procedures Procedure Code Date INDIVID PSYCHOTHERAP NEC 94.39 07/29/08 OTHER GROUP THERAPY 94.44 09/09/14 RECREATIONAL THERAPY 93.81 07/29/08 Internal Medicine Assmt/Plan - Assessment Assessment: - Assessment Assessment: HTN HYPERCHOLESTEREMIA SCHIZOAFFECTIVE PARKINSON'S HYPOTHYROIDISM - Plan Plan: fall precautions safety precautions continue current plan of care - Plan Plan: leida rn will order cxr Nutritional Asmnt/Malnutr-PDOC - Dietary Evaluation Malnutrition Findings (Please click <Entered> for more info): Nutritional Asmnt/Malnutrition Start: 03/28/17 15: 31 Text: Status: Complete Freq: Document 03/28/17 15:31 [email or web address] (Rec: 03/28/17 15:37 [email or web address]) Nutritional Asmnt/Malnutrition Patient General Information Nutritional Screening Moderate Risk Diagnosis psychosis Pertinent Medical Hx/Surgical Hx HTN, hypercholesterolemia, schizophrenia, pankinson/s disease, dementia, hypothyroidism Subjective Information Pt seen lying in bed, awake. Pt reported good appetite, has difficulty to chew rice, like herbal tea instead of coffee. pt has partial teeth noted. Per notes, PO intake 100%. Current Diet Order/ Nutrition Support no added salt 4 gm Pertinent Medications colcace, omega 3, levothyroxine, theragran Pertinent Labs no labs Nutritional Hx/Data Height 1.68 m Height (Calculated Centimeters) 167.6 Current Weight (lbs) 98.883 kg Weight (Calculated Kilograms) 98.9 Weight (Calculated Grams) 45560.1 [place] Body Weight 130 % [place] Body Weight 168 Body Mass Index (BMI) 35.2 Weight Status Obese GI Symptoms GI Symptoms None Last BM 03/28 Difficult in: None Skin Integrity/Comment: intact Current %PO Good (75-100%) Estimated Nutritional Goals BEE in Kcals: Adj wt of IBW Calories/Kcals/Kg 25-30 Kcals Calculated 1488-7231 based on adj wt 69kg Protein: Adj wt of IBW Protein g/k Protein Calculated 69 Fluid: ml Nutritional Problem 1. Problem Problem obesity Etiology possible excessive energy intake Signs/Symptoms: BMI 35 Malnutrition Alert Protein-Calorie Malnutrition N/A Is there a minimum of two criteria No selected? Query Text:Check all the applicable criteria. A minimum of two criteria are recommended for diagnosis of either severe or non-severe malnutrition. Intervention/Recommendation Comments 1. Continue with current diet as ordered. Notified chief clinical dietitian and updated pt food preference 2. Monitor PO intake, wt weekly, and skin integrity 3. F/U as low risk in 7 days, 04/04 Expected Outcomes/Goals Expected Outcomes/Goals 1. PO intake to meet at least 75% of nutritional needs. 2. Wt stability, skin to remain intact
[2017-04-04] MEDS: Atorvastatin Calcium 10 MG TAB PO SCH (20:17)
[2017-04-05] MEDS: Acetaminophen 500 MG TAB PO SCH ×3 (09:41→21:13)
[2017-04-05] MEDS: Multivitamin Tab PO SCH (09:42)
[2017-04-05] MEDS: Fish Oil 1,000 MG SGL PO SCH ×2 (09:42→16:28)
[2017-04-05] MEDS: POLYETHYLENE GLYCOL 3350 17 GM PACK PO SCH (09:42)
--- NOTE | 2017-04-05 14:57 | Internal Medicine Prog Note ---
Internal Medicine Subjective - Subjective Service Date: 04/05/17 Patient is:: awake, verbal, interactive, agitated, confused Patient Complaints of:: congestion, cough Per staff patient has:: no adverse event, noncompliant, tolerating meds Internal Medicine Objective - Physical Exam Vitals and I&O: Vital Signs Temp 97.5 F 04/05/17 06:29 Pulse 77 04/05/17 09:41 Resp 20 04/05/17 06:29 BP 145/78 04/05/17 09:41 Pulse Ox 97 04/05/17 06:29 Intake & Output 04/04/17 04/05/17 04/05/17 18:59 06:59 18:59 Intake Total 120 Balance 120 Intake: Oral 120 Other: # Voids 3 Active Medications: Current Medications Acetaminophen (Tylenol) 650 mg PO Q4HR PRN PRN Reason: Mild Pain / Temp above 100 Stop: 05/21/17 23:27 Acetaminophen (Tylenol Extra Strength) 500 mg PO TID [facility] Stop: 05/22/17 08:59 Last Admin: 04/05/17 14:03 Dose: 500 mg Al Hydrox/Mg Hydrox/Simethicone (Maalox) 30 ml PO Q4HR PRN PRN Reason: GI DISTRESS Stop: 05/21/17 23:27 Amantadine HCl (Symmetrel) 100 mg PO BID [facility] Stop: 05/22/17 08:59 Last Admin: 04/05/17 09:41 Dose: 100 mg Atorvastatin Calcium (Lipitor) 10 mg PO HS [facility] PRN Reason: Protocol Stop: 05/22/17 20:59 Last Admin: 04/04/17 20:17 Dose: 10 mg Baclofen (Lioresal) 20 mg PO BID [facility] Stop: 05/22/17 08:59 Last Admin: 04/05/17 09:41 Dose: 20 mg Carbidopa/Levodopa (Sinemet 25mg-100 Mg) 1 tab PO BID [facility] Stop: 05/22/17 08:59 Last Admin: 04/05/17 09:41 Dose: 1 tab Carvedilol (Coreg) 12.5 mg PO BID [facility] Stop: 05/23/17 16:59 Last Admin: 04/05/17 09:41 Dose: 12.5 mg Diphenhydramine HCl (Benadryl 50 Mg/Ml) 50 mg IM STAT PRN PRN Reason: Agitation Stop: 05/30/17 07:15 Docusate Sodium (Colace) 250 mg PO DAILY [facility] Stop: 05/22/17 08:59 Last Admin: 04/05/17 09:42 Dose: 250 mg Escitalopram Oxalate (Lexapro) 10 mg PO HS [facility]EN PRN Reason: Protocol Stop: 05/22/17 20:59 Last Admin: 04/04/17 20:17 Dose: 10 mg Fish Oil ([place] 3) 1,000 mg PO BID [facility] Stop: 05/22/17 08:59 Last Admin: 04/05/17 09:42 Dose: 1,000 mg Guaifenesin (Robitussin) 200 mg PO Q8HR PRN PRN Reason: Cough or Congestion Stop: 05/21/17 23:54 Last Admin: 03/24/17 13:31 Dose: 200 mg Haloperidol Lactate (Haldol) 5 mg IM STAT PRN PRN Reason: Agitation Stop: 05/30/17 07:15 Levothyroxine Sodium 0.1 mg/ (Levothyroxine Sodium 0.05 mg) 0.15 mg PO QDAC [facility] Stop: 05/25/17 09:44 Last Admin: 04/05/17 06:51 Dose: 0.15 mg Lorazepam (Ativan) 0.5 mg PO DAILY PRN; Protocol PRN Reason: Anxiety Stop: 05/22/17 13:01 Last Admin: 04/04/17 12:16 Dose: 0.5 mg Lorazepam (Ativan) 2 mg IM STAT PRN; Protocol PRN Reason: Agitation Stop: 05/30/17 07:15 Magnesium Hydroxide (Milk Of Magnesia) 30 ml PO Q6H PRN PRN Reason: Constipation Stop: 05/22/17 13:01 Memantine (Namenda) 10 mg PO BID [facility] Stop: 05/27/17 08:59 Last Admin: 04/05/17 09:42 Dose: 10 mg Multivitamins/Vitamin C (Theragran) 1 tab PO DAILY [facility] Stop: 05/22/17 08:59 Last Admin: 04/05/17 09:42 Dose: 1 tab Olanzapine (Zyprexa) 5 mg PO QAM [facility] PRN Reason: Protocol Stop: 05/25/17 12:38 Last Admin: 04/05/17 09:42 Dose: 5 mg Olanzapine (Zyprexa) 10 mg PO HS [facility] PRN Reason: Protocol Stop: 06/02/17 11:32 Last Admin: 04/04/17 20:17 Dose: 10 mg Oxycodone HCl (Oxycodone Ir) 5 mg PO Q8H PRN PRN Reason: Pain (Moderate) Stop: 05/22/17 00:14 Polyethylene Glycol (Miralax) 17 gm PO DAILY [facility] Stop: 05/22/17 08:59 Last Admin: 04/05/17 09:42 Dose: 17 gm Tramadol HCl (Ultram) 50 mg PO Q8H PRN PRN Reason: leg pain Stop: 05/21/17 23:54 Zolpidem Tartrate (Ambien) 5 mg PO HS PRN PRN Reason: Insomnia Stop: 05/21/17 23:27 Last Admin: 04/04/17 20:16 Dose: 5 mg General: alert HEENT: NC/AT, PERRLA Neck: Supple Lungs: CTAB Cardiovascular: RRR, without murmur Abdomen: soft, non-tender, non-distended, positive bowel sound Extremities: excoriation Neurological: alert - Procedures Procedures: Procedures Procedure Code Date INDIVID PSYCHOTHERAP NEC 94.39 07/29/08 OTHER GROUP THERAPY 94.44 09/09/14 RECREATIONAL THERAPY 93.81 07/29/08 Internal Medicine Assmt/Plan - Assessment Assessment: HTN HYPERCHOLESTEREMIA SCHIZOAFFECTIVE PARKINSON'S HYPOTHYROIDISM - Plan Plan: fall precautions safety precautions continue current plan of care Nutritional Asmnt/Malnutr-PDOC - Dietary Evaluation Malnutrition Findings (Please click <Entered> for more info): Nutritional Asmnt/Malnutrition Start: 03/28/17 15: 31 Text: Status: Complete Freq: Document 03/28/17 15:31 LCHENG (Rec: 03/28/17 15:37 LCHENG [email or web address]) Nutritional Asmnt/Malnutrition Patient General Information Nutritional Screening Moderate Risk Diagnosis psychosis Pertinent Medical Hx/Surgical Hx HTN, hypercholesterolemia, schizophrenia, pankinson/s disease, dementia, hypothyroidism Subjective Information Pt seen lying in bed, awake. Pt reported good appetite, has difficulty to chew rice, like herbal tea instead of coffee. pt has partial teeth noted. Per notes, PO intake 100%. Current Diet Order/ Nutrition Support no added salt 4 gm Pertinent Medications colcace, omega 3, levothyroxine, theragran Pertinent Labs no labs Nutritional Hx/Data Height 5 ft 6 in Height (Calculated Centimeters) 167.6 Current Weight (lbs) 218 lb Weight (Calculated Kilograms) 98.9 Weight (Calculated Grams) 01226.1 [place] Body Weight 130 % [place] Body Weight 168 Body Mass Index (BMI) 35.2 Weight Status Obese GI Symptoms GI Symptoms None Last BM 03/28 Difficult in: None Skin Integrity/Comment: intact Current %PO Good (75-100%) Estimated Nutritional Goals BEE in Kcals: Adj wt of IBW Calories/Kcals/Kg 25-30 Kcals Calculated [id number] based on adj wt 69kg Protein: Adj wt of IBW Protein g/k Protein Calculated 69 Fluid: ml Nutritional Problem 1. Problem Problem obesity Etiology possible excessive energy intake Signs/Symptoms: BMI 35 Malnutrition Alert Protein-Calorie Malnutrition N/A Is there a minimum of two criteria No selected? Query Text:Check all the applicable criteria. A minimum of two criteria are recommended for diagnosis of either severe or non-severe malnutrition. Intervention/Recommendation Comments 1. Continue with current diet as ordered. Notified dietitian consultant and updated pt food preference 2. Monitor PO intake, wt weekly, and skin integrity 3. F/U as low risk in 7 days, 04/04 Expected Outcomes/Goals Expected Outcomes/Goals 1. PO intake to meet at least 75% of nutritional needs. 2. Wt stability, skin to remain intact
[2017-04-05] MEDS: Atorvastatin Calcium 10 MG TAB PO SCH (21:13)
--- NOTE | 2017-04-05 21:49 | Progress Notes ---
DATE: 04/05/2017 Case was discussed with staff of the patient and reviewed records. The patient continues to be labile, loud, demanding, yelling and screaming at times, very agitated, unpredictable, impulsive, needing redirection. She continues to have poor insight, unable to fixated on discharge. Keep asking the same questions over and over again that. It is hard to make a conversation with her. She is compliant with the medication with no side effects, no sedation, nausea, no extrapyramidal symptoms and tolerating increase in Seroquel. We will continue to work with the patient in group therapy and milieu therapy, adjust medications as needed. JOB# [id number]
[2017-04-06] MEDS: Multivitamin Tab PO SCH (08:49)
[2017-04-06] MEDS: Fish Oil 1,000 MG SGL PO SCH ×2 (08:49→17:01)
[2017-04-06] MEDS: Acetaminophen 500 MG TAB PO SCH ×3 (08:50→20:45)
[2017-04-06] MEDS: POLYETHYLENE GLYCOL 3350 17 GM PACK PO SCH (08:56)
--- NOTE | 2017-04-06 12:13 | Internal Medicine Prog Note ---
Internal Medicine Subjective - Subjective Service Date: 04/06/17 Patient is:: awake, verbal, interactive, agitated, confused Patient Complaints of:: congestion, cough Per staff patient has:: no adverse event, noncompliant, tolerating meds Internal Medicine Objective - Physical Exam Vitals and I&O: Vital Signs Temp 98.4 F 04/06/17 06:32 Pulse 74 04/06/17 08:49 Resp 19 04/06/17 06:32 BP 142/77 04/06/17 08:49 Pulse Ox 98 04/06/17 06:32 Intake & Output 04/05/17 04/06/17 04/06/17 18:59 06:59 18:59 Intake Total 360 120 Balance 360 120 Intake: Oral 360 120 Other: # Voids 3 3 # Bowel Movements 0 Active Medications: Current Medications Acetaminophen (Tylenol) 650 mg PO Q4HR PRN PRN Reason: Mild Pain / Temp above 100 Stop: 05/21/17 23:27 Acetaminophen (Tylenol Extra Strength) 500 mg PO TID [facility] Stop: 05/22/17 08:59 Last Admin: 04/06/17 08:50 Dose: 500 mg Al Hydrox/Mg Hydrox/Simethicone (Maalox) 30 ml PO Q4HR PRN PRN Reason: GI DISTRESS Stop: 05/21/17 23:27 Amantadine HCl (Symmetrel) 100 mg PO BID [facility] Stop: 05/22/17 08:59 Last Admin: 04/06/17 08:49 Dose: 100 mg Atorvastatin Calcium (Lipitor) 10 mg PO HS [facility] PRN Reason: Protocol Stop: 05/22/17 20:59 Last Admin: 04/05/17 21:13 Dose: 10 mg Baclofen (Lioresal) 20 mg PO BID [facility] Stop: 05/22/17 08:59 Last Admin: 04/06/17 08:50 Dose: 20 mg Carbidopa/Levodopa (Sinemet 25mg-100 Mg) 1 tab PO BID [facility] Stop: 05/22/17 08:59 Last Admin: 04/06/17 08:49 Dose: 1 tab Carvedilol (Coreg) 12.5 mg PO BID [facility] Stop: 05/23/17 16:59 Last Admin: 04/06/17 08:49 Dose: 12.5 mg Diphenhydramine HCl (Benadryl 50 Mg/Ml) 50 mg IM STAT PRN PRN Reason: Agitation Stop: 05/30/17 07:15 Docusate Sodium (Colace) 250 mg PO DAILY [facility] Stop: 05/22/17 08:59 Last Admin: 04/06/17 08:49 Dose: 250 mg Escitalopram Oxalate (Lexapro) 10 mg PO HS [facility] PRN Reason: Protocol Stop: 05/22/17 20:59 Last Admin: 04/05/17 21:13 Dose: 10 mg Fish Oil ([place] 3) 1,000 mg PO BID [facility] Stop: 05/22/17 08:59 Last Admin: 04/06/17 08:49 Dose: 1,000 mg Guaifenesin (Robitussin) 200 mg PO Q8HR PRN PRN Reason: Cough or Congestion Stop: 05/21/17 23:54 Last Admin: 03/24/17 13:31 Dose: 200 mg Haloperidol Lactate (Haldol) 5 mg IM STAT PRN PRN Reason: Agitation Stop: 05/30/17 07:15 Levothyroxine Sodium 0.1 mg/ (Levothyroxine Sodium 0.05 mg) 0.15 mg PO QDAC [facility] Stop: 05/25/17 09:44 Last Admin: 04/06/17 06:33 Dose: 0.15 mg Lorazepam (Ativan) 2 mg IM STAT PRN; Protocol PRN Reason: Agitation Stop: 05/30/17 07:15 Magnesium Hydroxide (Milk Of Magnesia) 30 ml PO Q6H PRN PRN Reason: Constipation Stop: 05/22/17 13:01 Memantine (Namenda) 10 mg PO BID [facility] Stop: 05/27/17 08:59 Last Admin: 04/06/17 08:50 Dose: 10 mg Multivitamins/Vitamin C (Theragran) 1 tab PO DAILY [facility] Stop: 05/22/17 08:59 Last Admin: 04/06/17 08:49 Dose: 1 tab Olanzapine (Zyprexa) 5 mg PO QAM [facility] PRN Reason: Protocol Stop: 05/25/17 12:38 Last Admin: 04/06/17 08:49 Dose: 5 mg Olanzapine (Zyprexa) 10 mg PO HS [facility] PRN Reason: Protocol Stop: 06/02/17 11:32 Last Admin: 04/05/17 21:14 Dose: 10 mg Polyethylene Glycol (Miralax) 17 gm PO DAILY [facility] Stop: 05/22/17 08:59 Last Admin: 04/06/17 08:56 Dose: Not Given Tramadol HCl (Ultram) 50 mg PO Q8H PRN PRN Reason: leg pain Stop: 05/21/17 23:54 Zolpidem Tartrate (Ambien) 5 mg PO HS PRN PRN Reason: Insomnia Stop: 05/21/17 23:27 Last Admin: 04/05/17 21:30 Dose: 5 mg General: alert HEENT: NC/AT, PERRLA Neck: Supple Lungs: CTAB Cardiovascular: RRR, without murmur Abdomen: soft, non-tender, non-distended, positive bowel sound Extremities: excoriation Neurological: alert - Procedures Procedures: Procedures Procedure Code Date INDIVID PSYCHOTHERAP NEC 94.39 07/29/08 OTHER GROUP THERAPY 94.44 09/09/14 RECREATIONAL THERAPY 93.81 07/29/08 Internal Medicine Assmt/Plan - Assessment Assessment: HTN HYPERCHOLESTEREMIA SCHIZOAFFECTIVE PARKINSON'S HYPOTHYROIDISM - Plan Plan: fall precautions safety precautions continue current plan of care Nutritional Asmnt/Malnutr-PDOC - Dietary Evaluation Malnutrition Findings (Please click <Entered> for more info): Nutritional Asmnt/Malnutrition Start: 03/28/17 15: 31 Text: Status: Complete Freq: Document 03/28/17 15:31 LCHENG (Rec: 03/28/17 15:37 LCHENG [email or web address]) Nutritional Asmnt/Malnutrition Patient General Information Nutritional Screening Moderate Risk Diagnosis psychosis Pertinent Medical Hx/Surgical Hx HTN, hypercholesterolemia, schizophrenia, pankinson/s disease, dementia, hypothyroidism Subjective Information Pt seen lying in bed, awake. Pt reported good appetite, has difficulty to chew rice, like herbal tea instead of coffee. pt has partial teeth noted. Per notes, PO intake 100%. Current Diet Order/ Nutrition Support no added salt 4 gm Pertinent Medications colcace, omega 3, levothyroxine, theragran Pertinent Labs no labs Nutritional Hx/Data Height 5 ft 6 in Height (Calculated Centimeters) 167.6 Current Weight (lbs) 218 lb Weight (Calculated Kilograms) 98.9 Weight (Calculated Grams) 24772.1 [place] Body Weight 130 % [place] Body Weight 168 Body Mass Index (BMI) 35.2 Weight Status Obese GI Symptoms GI Symptoms None Last BM 03/28 Difficult in: None Skin Integrity/Comment: intact Current %PO Good (75-100%) Estimated Nutritional Goals BEE in Kcals: Adj wt of IBW Calories/Kcals/Kg 25-30 Kcals Calculated 3476-3311 based on adj wt 69kg Protein: Adj wt of IBW Protein g/k Protein Calculated 69 Fluid: ml Nutritional Problem 1. Problem Problem obesity Etiology possible excessive energy intake Signs/Symptoms: BMI 35 Malnutrition Alert Protein-Calorie Malnutrition N/A Is there a minimum of two criteria No selected? Query Text:Check all the applicable criteria. A minimum of two criteria are recommended for diagnosis of either severe or non-severe malnutrition. Intervention/Recommendation Comments 1. Continue with current diet as ordered. Notified dietetic tech and updated pt food preference 2. Monitor PO intake, wt weekly, and skin integrity 3. F/U as low risk in 7 days, 04/04 Expected Outcomes/Goals Expected Outcomes/Goals 1. PO intake to meet at least 75% of nutritional needs. 2. Wt stability, skin to remain intact
--- NOTE | 2017-04-06 15:54 | Progress Notes ---
DATE: 04/06/2017 Case was discussed with staff of the patient's records. The patient continues to be irritable, continues to have poor insight, continues to be unable to make safe plan for self-care, unpredictable and impulsive, needing redirection, loud, demanding. She has been compliant with the medication with no side effects, no sedation, no nausea and some symptoms. I did increase her Zyprexa dose 2 days ago to 10 mg at bedtime, 5 mg in the morning. I will increase morning dose to 5 mg twice a day and so far no side effects, no sedation, no nausea and we will continue to work with the patient in group therapy, milieu therapy, and adjust medications as needed. [facility]# [id number]
[2017-04-06] MEDS ORDERED: Haloperidol Lactate 5 mg/mL 1mL Vial IM PRN (17:23)
[2017-04-06] MEDS ORDERED: Haloperidol Lactate 5 mg/mL 1mL Vial IM ONE (20:30)
[2017-04-06] MEDS: Atorvastatin Calcium 10 MG TAB PO SCH (20:45)
[2017-04-07] MEDS: Fish Oil 1,000 MG SGL PO SCH ×2 (08:55→16:18)
[2017-04-07] MEDS: Acetaminophen 500 MG TAB PO SCH ×3 (08:57→20:57)
[2017-04-07] MEDS: POLYETHYLENE GLYCOL 3350 17 GM PACK PO SCH (09:00)
[2017-04-07] MEDS: Multivitamin Tab PO SCH (09:00)
--- NOTE | 2017-04-07 14:23 | Internal Medicine Prog Note ---
Internal Medicine Subjective - Subjective Patient seen and examined:: with staff, chart reviewed Patient is:: awake, verbal, interactive, agitated, confused Patient Complaints of:: congestion, cough Per staff patient has:: no adverse event, poor appetite, noncompliant, tolerating meds Internal Medicine Objective - Physical Exam Vitals and I&O: Vital Signs Temp 97.4 F 04/06/17 15:24 Pulse 82 04/07/17 08:59 Resp 18 04/06/17 15:24 BP 140/69 04/07/17 08:59 Pulse Ox 97 04/06/17 15:24 Intake & Output 04/06/17 04/07/17 04/07/17 18:59 06:59 18:59 Intake Total 1200 Balance 1200 Intake: Oral 1200 Other: # Voids 3 Active Medications: Current Medications Acetaminophen (Tylenol) 650 mg PO Q4HR PRN PRN Reason: Mild Pain / Temp above 100 Stop: 05/21/17 23:27 Acetaminophen (Tylenol Extra Strength) 500 mg PO TID [facility] Stop: 05/22/17 08:59 Last Admin: 04/07/17 14:01 Dose: 500 mg Al Hydrox/Mg Hydrox/Simethicone (Maalox) 30 ml PO Q4HR PRN PRN Reason: GI DISTRESS Stop: 05/21/17 23:27 Amantadine HCl (Symmetrel) 100 mg PO BID [facility] Stop: 05/22/17 08:59 Last Admin: 04/07/17 08:59 Dose: 100 mg Atorvastatin Calcium (Lipitor) 10 mg PO HS [facility] PRN Reason: Protocol Stop: 05/22/17 20:59 Last Admin: 04/06/17 20:45 Dose: 10 mg Baclofen (Lioresal) 20 mg PO BID [facility] Stop: 05/22/17 08:59 Last Admin: 04/07/17 08:56 Dose: 20 mg Carbidopa/Levodopa (Sinemet 25mg-100 Mg) 1 tab PO BID [facility] Stop: 05/22/17 08:59 Last Admin: 04/07/17 08:55 Dose: 1 tab Carvedilol (Coreg) 12.5 mg PO BID [facility] Stop: 05/23/17 16:59 Last Admin: 04/07/17 08:59 Dose: 12.5 mg Diphenhydramine HCl (Benadryl 50 Mg/Ml) 50 mg IM STAT PRN PRN Reason: Agitation Stop: 05/30/17 07:15 Docusate Sodium (Colace) 250 mg PO DAILY [facility] Stop: 05/22/17 08:59 Last Admin: 04/07/17 08:57 Dose: 250 mg Escitalopram Oxalate (Lexapro) 10 mg PO HS [facility] PRN Reason: Protocol Stop: 05/22/17 20:59 Last Admin: 04/06/17 20:44 Dose: 10 mg Fish Oil ([place] 3) 1,000 mg PO BID [facility] Stop: 05/22/17 08:59 Last Admin: 04/07/17 08:55 Dose: 1,000 mg Guaifenesin (Robitussin) 200 mg PO Q8HR PRN PRN Reason: Cough or Congestion Stop: 05/21/17 23:54 Last Admin: 03/24/17 13:31 Dose: 200 mg Levothyroxine Sodium 0.1 mg/ (Levothyroxine Sodium 0.05 mg) 0.15 mg PO QDAC [facility] Stop: 05/25/17 09:44 Last Admin: 04/07/17 07:04 Dose: 0.15 mg Lorazepam (Ativan) 2 mg IM STAT PRN; Protocol PRN Reason: Agitation Stop: 05/30/17 07:15 Magnesium Hydroxide (Milk Of Magnesia) 30 ml PO Q6H PRN PRN Reason: Constipation Stop: 05/22/17 13:01 Memantine (Namenda) 10 mg PO BID [facility] Stop: 05/27/17 08:59 Last Admin: 04/07/17 08:59 Dose: 10 mg Multivitamins/Vitamin C (Theragran) 1 tab PO DAILY [facility] Stop: 05/22/17 08:59 Last Admin: 04/07/17 09:00 Dose: 1 tab Olanzapine (Zyprexa) 10 mg PO HS [facility] PRN Reason: Protocol Stop: 06/02/17 11:32 Last Admin: 04/06/17 20:44 Dose: 10 mg Olanzapine (Zyprexa) 5 mg PO BID [facility] PRN Reason: Protocol Stop: 06/05/17 16:59 Last Admin: 04/07/17 09:00 Dose: 5 mg Polyethylene Glycol (Miralax) 17 gm PO DAILY [facility] Stop: 05/22/17 08:59 Last Admin: 04/07/17 09:00 Dose: 17 gm Tramadol HCl (Ultram) 50 mg PO Q8H PRN PRN Reason: leg pain Stop: 05/21/17 23:54 Zolpidem Tartrate (Ambien) 5 mg PO HS PRN PRN Reason: Insomnia Stop: 05/21/17 23:27 Last Admin: 04/05/17 21:30 Dose: 5 mg General: demented HEENT: NC/AT, PERRLA Neck: Supple, No LAD, deformity Lungs: CTAB Cardiovascular: RRR, without murmur Abdomen: soft, non-tender, non-distended, positive bowel sound Extremities: excoriation Neurological: disorganized - Procedures Procedures: Procedures Procedure Code Date INDIVID PSYCHOTHERAP NEC 94.39 07/29/08 OTHER GROUP THERAPY 94.44 09/09/14 RECREATIONAL THERAPY 93.81 07/29/08 Internal Medicine Assmt/Plan - Assessment Assessment: - Assessment Assessment: HTN HYPERCHOLESTEREMIA SCHIZOAFFECTIVE PARKINSON'S HYPOTHYROIDISM - Plan Plan: fall precautions safety precautions continue current plan of care - Plan Plan: leida rn will order cxr Nutritional Asmnt/Malnutr-PDOC - Dietary Evaluation Malnutrition Findings (Please click <Entered> for more info): Nutritional Asmnt/Malnutrition Start: 03/28/17 15: 31 Text: Status: Complete Freq: Document 03/28/17 15:31 [email or web address] (Rec: 03/28/17 15:37 LCHENG [email or web address]) Nutritional Asmnt/Malnutrition Patient General Information Nutritional Screening Moderate Risk Diagnosis psychosis Pertinent Medical Hx/Surgical Hx HTN, hypercholesterolemia, schizophrenia, pankinson/s disease, dementia, hypothyroidism Subjective Information Pt seen lying in bed, awake. Pt reported good appetite, has difficulty to chew rice, like herbal tea instead of coffee. pt has partial teeth noted. Per notes, PO intake 100%. Current Diet Order/ Nutrition Support no added salt 4 gm Pertinent Medications colcace, omega 3, levothyroxine, theragran Pertinent Labs no labs Nutritional Hx/Data Height 1.68 m Height (Calculated Centimeters) 167.6 Current Weight (lbs) 98.883 kg Weight (Calculated Kilograms) 98.9 Weight (Calculated Grams) 73821.1 [place] Body Weight 130 % [place] Body Weight 168 Body Mass Index (BMI) 35.2 Weight Status Obese GI Symptoms GI Symptoms None Last BM 03/28 Difficult in: None Skin Integrity/Comment: intact Current %PO Good (75-100%) Estimated Nutritional Goals BEE in Kcals: Adj wt of IBW Calories/Kcals/Kg 25-30 Kcals Calculated 9634-7878 based on adj wt 69kg Protein: Adj wt of IBW Protein g/k Protein Calculated 69 Fluid: ml Nutritional Problem 1. Problem Problem obesity Etiology possible excessive energy intake Signs/Symptoms: BMI 35 Malnutrition Alert Protein-Calorie Malnutrition N/A Is there a minimum of two criteria No selected? Query Text:Check all the applicable criteria. A minimum of two criteria are recommended for diagnosis of either severe or non-severe malnutrition. Intervention/Recommendation Comments 1. Continue with current diet as ordered. Notified dietary services manager and updated pt food preference 2. Monitor PO intake, wt weekly, and skin integrity 3. F/U as low risk in 7 days, 04/04 Expected Outcomes/Goals Expected Outcomes/Goals 1. PO intake to meet at least 75% of nutritional needs. 2. Wt stability, skin to remain intact
--- NOTE | 2017-04-07 20:57 | Progress Notes ---
DATE: 04/07/2017 SUBJECTIVE: The patient is currently in the hospital, seen today, 04/07/2017, agitation, still yelling, screaming, states she wants to go back to [place], demanding her wheelchair. The patient remains isolative, withdrawn, still with behavioral disturbances, yelling episodes, confusion, poor insight, impulse control issues, loud, demanding. 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 ASSESSMENT: The patient remains symptomatic, yelling, screaming, not safe for discharge. [facility]# [id number]
[2017-04-07] MEDS: Atorvastatin Calcium 10 MG TAB PO SCH (20:58)
[2017-04-08] MEDS: Fish Oil 1,000 MG SGL PO SCH ×2 (09:33→17:11)
[2017-04-08] MEDS: Multivitamin Tab PO SCH (09:33)
[2017-04-08] MEDS: POLYETHYLENE GLYCOL 3350 17 GM PACK PO SCH (09:34)
[2017-04-08] MEDS: Acetaminophen 500 MG TAB PO SCH ×3 (09:34→20:36)
--- NOTE | 2017-04-08 14:51 | Internal Medicine Prog Note ---
Internal Medicine Subjective - Subjective Patient seen and examined:: with staff, chart reviewed Patient is:: awake, verbal, interactive, agitated, confused Patient Complaints of:: congestion, cough Per staff patient has:: no adverse event, poor appetite, noncompliant, tolerating meds Internal Medicine Objective - Physical Exam Vitals and I&O: Vital Signs Temp 98.3 F 04/08/17 06:30 Pulse 62 04/08/17 09:34 Resp 19 04/08/17 06:30 BP 142/76 04/08/17 09:34 Pulse Ox 97 04/08/17 06:30 Intake & Output 04/07/17 04/08/17 04/08/17 18:59 06:59 18:59 Intake Total 1200 120 Balance 1200 120 Intake: Oral 1200 120 Other: # Voids 3 3 Active Medications: Current Medications Acetaminophen (Tylenol) 650 mg PO Q4HR PRN PRN Reason: Mild Pain / Temp above 100 Stop: 05/21/17 23:27 Acetaminophen (Tylenol Extra Strength) 500 mg PO TID [facility] Stop: 05/22/17 08:59 Last Admin: 04/08/17 09:34 Dose: 500 mg Al Hydrox/Mg Hydrox/Simethicone (Maalox) 30 ml PO Q4HR PRN PRN Reason: GI DISTRESS Stop: 05/21/17 23:27 Amantadine HCl (Symmetrel) 100 mg PO BID [facility] Stop: 05/22/17 08:59 Last Admin: 04/08/17 09:33 Dose: 100 mg Atorvastatin Calcium (Lipitor) 10 mg PO HS [facility] PRN Reason: Protocol Stop: 05/22/17 20:59 Last Admin: 04/07/17 20:58 Dose: 10 mg Baclofen (Lioresal) 20 mg PO BID [facility] Stop: 05/22/17 08:59 Last Admin: 04/08/17 09:34 Dose: 20 mg Carbidopa/Levodopa (Sinemet 25mg-100 Mg) 1 tab PO BID [facility] Stop: 05/22/17 08:59 Last Admin: 04/08/17 09:33 Dose: 1 tab Carvedilol (Coreg) 12.5 mg PO BID [facility] Stop: 05/23/17 16:59 Last Admin: 04/08/17 09:34 Dose: 12.5 mg Diphenhydramine HCl (Benadryl 50 Mg/Ml) 50 mg IM STAT PRN PRN Reason: Agitation Stop: 05/30/17 07:15 Docusate Sodium (Colace) 250 mg PO DAILY [facility] Stop: 05/22/17 08:59 Last Admin: 04/08/17 09:34 Dose: 250 mg Escitalopram Oxalate (Lexapro) 10 mg PO HS [facility] PRN Reason: Protocol Stop: 05/22/17 20:59 Last Admin: 04/07/17 20:58 Dose: 10 mg Fish Oil ([place] 3) 1,000 mg PO BID [facility] Stop: 05/22/17 08:59 Last Admin: 04/08/17 09:33 Dose: 1,000 mg Guaifenesin (Robitussin) 200 mg PO Q8HR PRN PRN Reason: Cough or Congestion Stop: 05/21/17 23:54 Last Admin: 03/24/17 13:31 Dose: 200 mg Levothyroxine Sodium 0.1 mg/ (Levothyroxine Sodium 0.05 mg) 0.15 mg PO QDAC [facility] Stop: 05/25/17 09:44 Last Admin: 04/08/17 06:42 Dose: 0.15 mg Lorazepam (Ativan) 2 mg IM STAT PRN; Protocol PRN Reason: Agitation Stop: 05/30/17 07:15 Magnesium Hydroxide (Milk Of Magnesia) 30 ml PO Q6H PRN PRN Reason: Constipation Stop: 05/22/17 13:01 Memantine (Namenda) 10 mg PO BID [facility] Stop: 05/27/17 08:59 Last Admin: 04/08/17 09:34 Dose: 10 mg Multivitamins/Vitamin C (Theragran) 1 tab PO DAILY [facility] Stop: 05/22/17 08:59 Last Admin: 04/08/17 09:33 Dose: 1 tab Olanzapine (Zyprexa) 10 mg PO HS [facility] PRN Reason: Protocol Stop: 06/02/17 11:32 Last Admin: 04/07/17 20:58 Dose: 10 mg Olanzapine (Zyprexa) 5 mg PO BID [facility] PRN Reason: Protocol Stop: 06/05/17 16:59 Last Admin: 04/08/17 09:33 Dose: 5 mg Polyethylene Glycol (Miralax) 17 gm PO DAILY [facility] Stop: 05/22/17 08:59 Last Admin: 04/08/17 09:34 Dose: 17 gm Tramadol HCl (Ultram) 50 mg PO Q8H PRN PRN Reason: leg pain Stop: 05/21/17 23:54 Zolpidem Tartrate (Ambien) 5 mg PO HS PRN PRN Reason: Insomnia Stop: 05/21/17 23:27 Last Admin: 04/05/17 21:30 Dose: 5 mg General: demented HEENT: NC/AT, PERRLA Neck: Supple, No LAD, deformity Lungs: CTAB Cardiovascular: RRR, without murmur Abdomen: soft, non-tender, non-distended, positive bowel sound Extremities: excoriation Neurological: disorganized - Procedures Procedures: Procedures Procedure Code Date INDIVID PSYCHOTHERAP NEC 94.39 07/29/08 OTHER GROUP THERAPY 94.44 09/09/14 RECREATIONAL THERAPY 93.81 07/29/08 Internal Medicine Assmt/Plan - Assessment Assessment: - Assessment Assessment: HTN HYPERCHOLESTEREMIA SCHIZOAFFECTIVE PARKINSON'S HYPOTHYROIDISM - Plan Plan: fall precautions safety precautions continue current plan of care - Plan Plan: leida rn will order cxr Nutritional Asmnt/Malnutr-PDOC - Dietary Evaluation Malnutrition Findings (Please click <Entered> for more info): Nutritional Asmnt/Malnutrition Start: 03/28/17 15: 31 Text: Status: Complete Freq: Document 03/28/17 15:31 LCHENG (Rec: 03/28/17 15:37 LCHENG [email or web address]) Nutritional Asmnt/Malnutrition Patient General Information Nutritional Screening Moderate Risk Diagnosis psychosis Pertinent Medical Hx/Surgical Hx HTN, hypercholesterolemia, schizophrenia, pankinson/s disease, dementia, hypothyroidism Subjective Information Pt seen lying in bed, awake. Pt reported good appetite, has difficulty to chew rice, like herbal tea instead of coffee. pt has partial teeth noted. Per notes, PO intake 100%. Current Diet Order/ Nutrition Support no added salt 4 gm Pertinent Medications colcace, omega 3, levothyroxine, theragran Pertinent Labs no labs Nutritional Hx/Data Height 1.68 m Height (Calculated Centimeters) 167.6 Current Weight (lbs) 98.883 kg Weight (Calculated Kilograms) 98.9 Weight (Calculated Grams) 03215.1 [place] Body Weight 130 % [place] Body Weight 168 Body Mass Index (BMI) 35.2 Weight Status Obese GI Symptoms GI Symptoms None Last BM 03/28 Difficult in: None Skin Integrity/Comment: intact Current %PO Good (75-100%) Estimated Nutritional Goals BEE in Kcals: Adj wt of IBW Calories/Kcals/Kg 25-30 Kcals Calculated 2359-0980 based on adj wt 69kg Protein: Adj wt of IBW Protein g/k Protein Calculated 69 Fluid: ml Nutritional Problem 1. Problem Problem obesity Etiology possible excessive energy intake Signs/Symptoms: BMI 35 Malnutrition Alert Protein-Calorie Malnutrition N/A Is there a minimum of two criteria No selected? Query Text:Check all the applicable criteria. A minimum of two criteria are recommended for diagnosis of either severe or non-severe malnutrition. Intervention/Recommendation Comments 1. Continue with current diet as ordered. Notified consultant dietitian and updated pt food preference 2. Monitor PO intake, wt weekly, and skin integrity 3. F/U as low risk in 7 days, 04/04 Expected Outcomes/Goals Expected Outcomes/Goals 1. PO intake to meet at least 75% of nutritional needs. 2. Wt stability, skin to remain intact
[2017-04-08] MEDS: Atorvastatin Calcium 10 MG TAB PO SCH (20:33)
--- NOTE | 2017-04-08 22:38 | Progress Notes ---
DATE: 04/08/2017 The patient is still yelling, screaming, stating she wants to go back to [place], demanding her wheelchair, still isolative, still withdrawn, not safe for a lower level of care. Sleeping fairly well with circulator awakenings, eating with some prompting, ADLs. She needs help. ASSESSMENT: The patient remains symptomatic, not safe for a lower level of care given ongoing behavioral disturbances. PLAN: We will continue to monitor and titrate medications. [facility]# [id number]
[2017-04-09] MEDS: Acetaminophen 500 MG TAB PO SCH ×3 (08:16→21:00)
[2017-04-09] MEDS: Fish Oil 1,000 MG SGL PO SCH ×2 (08:16→16:20)
[2017-04-09] MEDS: Multivitamin Tab PO SCH (08:17)
[2017-04-09] MEDS: POLYETHYLENE GLYCOL 3350 17 GM PACK PO SCH (08:18)
--- NOTE | 2017-04-09 08:31 | Progress Notes ---
DATE: 04/09/2017 SUBJECTIVE: The patient remains agitated, yelling, screaming, demanding to go back to [place]. Still isolative, withdrawn, confused, disoriented. Sleeping fairly well. Still waking up quite early, eating with some prompting. Needing help with ADLs. MEDICATIONS: Reviewed including doses and frequencies. ASSESSMENT: The patient remains symptomatic, not safe for lower level of care, cannot attend to her basic needs. It is unclear if placement has been confirmed. Still with ongoing behavioral disturbances, yelling and screaming. PLAN: We will continue to monitor. The patient seems to be tolerating medications well. No EPS. No over sedation. We will make appropriate medication adjustments. [facility]# [id number]
--- NOTE | 2017-04-09 14:53 | Internal Medicine Prog Note ---
Internal Medicine Subjective - Subjective Patient seen and examined:: with staff, chart reviewed Patient is:: awake, verbal, interactive, agitated, confused Patient Complaints of:: congestion, cough Per staff patient has:: no adverse event, poor appetite, noncompliant, tolerating meds Internal Medicine Objective - Physical Exam Vitals and I&O: Vital Signs Temp 97.3 F 04/09/17 06:15 Pulse 66 04/09/17 12:23 Resp 19 04/09/17 12:23 BP 146/75 04/09/17 08:17 Pulse Ox 99 04/09/17 06:15 Intake & Output 04/08/17 04/09/17 04/09/17 18:59 06:59 18:59 Intake Total 1200 120 Balance 1200 120 Intake: Oral 1200 120 Other: # Voids 3 3 Stool Characteristics Soft Formed Active Medications: Current Medications Acetaminophen (Tylenol) 650 mg PO Q4HR PRN PRN Reason: Mild Pain / Temp above 100 Stop: 05/21/17 23:27 Acetaminophen (Tylenol Extra Strength) 500 mg PO TID [facility] Stop: 05/22/17 08:59 Last Admin: 04/09/17 13:49 Dose: 500 mg Al Hydrox/Mg Hydrox/Simethicone (Maalox) 30 ml PO Q4HR PRN PRN Reason: GI DISTRESS Stop: 05/21/17 23:27 Amantadine HCl (Symmetrel) 100 mg PO BID [facility] Stop: 05/22/17 08:59 Last Admin: 04/09/17 08:16 Dose: 100 mg Atorvastatin Calcium (Lipitor) 10 mg PO HS [facility] PRN Reason: Protocol Stop: 05/22/17 20:59 Last Admin: 04/08/17 20:33 Dose: 10 mg Baclofen (Lioresal) 20 mg PO BID [facility] Stop: 05/22/17 08:59 Last Admin: 04/09/17 08:15 Dose: 20 mg Carbidopa/Levodopa (Sinemet 25mg-100 Mg) 1 tab PO BID [facility] Stop: 05/22/17 08:59 Last Admin: 04/09/17 08:16 Dose: 1 tab Carvedilol (Coreg) 12.5 mg PO BID [facility] Stop: 05/23/17 16:59 Last Admin: 04/09/17 08:17 Dose: 12.5 mg Diphenhydramine HCl (Benadryl 50 Mg/Ml) 50 mg IM STAT PRN PRN Reason: Agitation Stop: 05/30/17 07:15 Docusate Sodium (Colace) 250 mg PO DAILY KEN Stop: 05/22/17 08:59 Last Admin: 04/09/17 08:16 Dose: 250 mg Donepezil HCl (Aricept) 5 mg PO HS KEN Stop: 06/08/17 20:59 Escitalopram Oxalate (Lexapro) 10 mg PO HS KEN PRN Reason: Protocol Stop: 05/22/17 20:59 Last Admin: 04/08/17 20:34 Dose: 10 mg Fish Oil ([address]) 1,000 mg PO BID KEN Stop: 05/22/17 08:59 Last Admin: 04/09/17 08:16 Dose: 1,000 mg Guaifenesin (Robitussin) 200 mg PO Q8HR PRN PRN Reason: Cough or Congestion Stop: 05/21/17 23:54 Last Admin: 03/24/17 13:31 Dose: 200 mg Levothyroxine Sodium 0.1 mg/ (Levothyroxine Sodium 0.05 mg) 0.15 mg PO QDAC KEN Stop: 05/25/17 09:44 Last Admin: 04/09/17 06:45 Dose: 0.15 mg Lorazepam (Ativan) 2 mg IM STAT PRN; Protocol PRN Reason: Agitation Stop: 05/30/17 07:15 Magnesium Hydroxide (Milk Of Magnesia) 30 ml PO Q6H PRN PRN Reason: Constipation Stop: 05/22/17 13:01 Last Admin: 04/09/17 14:47 Dose: 30 ml Memantine (Namenda) 10 mg PO BID KEN Stop: 05/27/17 08:59 Last Admin: 04/09/17 08:17 Dose: 10 mg Multivitamins/Vitamin C (Theragran) 1 tab PO DAILY KEN Stop: 05/22/17 08:59 Last Admin: 04/09/17 08:17 Dose: 1 tab Olanzapine (Zyprexa) 10 mg PO HS KEN PRN Reason: Protocol Stop: 06/02/17 11:32 Last Admin: 04/08/17 20:34 Dose: 10 mg Olanzapine (Zyprexa) 5 mg PO BID KEN PRN Reason: Protocol Stop: 06/05/17 16:59 Last Admin: 04/09/17 08:18 Dose: 5 mg Polyethylene Glycol (Miralax) 17 gm PO DAILY KEN Stop: 05/22/17 08:59 Last Admin: 04/09/17 08:18 Dose: 17 gm Tramadol HCl (Ultram) 50 mg PO Q8H PRN PRN Reason: leg pain Stop: 05/21/17 23:54 Zolpidem Tartrate (Ambien) 5 mg PO HS PRN PRN Reason: Insomnia Stop: 05/21/17 23:27 Last Admin: 04/05/17 21:30 Dose: 5 mg General: demented HEENT: NC/AT, PERRLA Neck: Supple, No LAD, deformity Lungs: CTAB Cardiovascular: RRR, without murmur Abdomen: soft, non-tender, non-distended, positive bowel sound Extremities: excoriation Neurological: disorganized - Procedures Procedures: Procedures Procedure Code Date INDIVID PSYCHOTHERAP NEC 94.39 07/29/08 OTHER GROUP THERAPY 94.44 09/09/14 RECREATIONAL THERAPY 93.81 07/29/08 Internal Medicine Assmt/Plan - Assessment Assessment: - Assessment Assessment: HTN HYPERCHOLESTEREMIA SCHIZOAFFECTIVE PARKINSON'S HYPOTHYROIDISM - Plan Plan: fall precautions safety precautions continue current plan of care - Plan Plan: dw rn will order cxr Nutritional Asmnt/Malnutr-PDOC - Dietary Evaluation Malnutrition Findings (Please click <Entered> for more info): Nutritional Asmnt/Malnutrition Start: 03/28/17 15: 31 Text: Status: Complete Freq: Document 03/28/17 15:31 LCHENG (Rec: 03/28/17 15:37 [email or web address] [email or web address]) Nutritional Asmnt/Malnutrition Patient General Information Nutritional Screening Moderate Risk Diagnosis psychosis Pertinent Medical Hx/Surgical Hx HTN, hypercholesterolemia, schizophrenia, pankinson/s disease, dementia, hypothyroidism Subjective Information Pt seen lying in bed, awake. Pt reported good appetite, has difficulty to chew rice, like herbal tea instead of coffee. pt has partial teeth noted. Per notes, PO intake 100%. Current Diet Order/ Nutrition Support no added salt 4 gm Pertinent Medications colcace, omega 3, levothyroxine, theragran Pertinent Labs no labs Nutritional Hx/Data Height 1.68 m Height (Calculated Centimeters) 167.6 Current Weight (lbs) 98.883 kg Weight (Calculated Kilograms) 98.9 Weight (Calculated Grams) 32645.1 [place] Body Weight 130 % [place] Body Weight 168 Body Mass Index (BMI) 35.2 Weight Status Obese GI Symptoms GI Symptoms None Last BM 03/28 Difficult in: None Skin Integrity/Comment: intact Current %PO Good (75-100%) Estimated Nutritional Goals BEE in Kcals: Adj wt of IBW Calories/Kcals/Kg 25-30 Kcals Calculated 6531-4587 based on adj wt 69kg Protein: Adj wt of IBW Protein g/k Protein Calculated 69 Fluid: ml 0692-6632 Nutritional Problem 1. Problem Problem obesity Etiology possible excessive energy intake Signs/Symptoms: BMI 35 Malnutrition Alert Protein-Calorie Malnutrition N/A Is there a minimum of two criteria No selected? Query Text:Check all the applicable criteria. A minimum of two criteria are recommended for diagnosis of either severe or non-severe malnutrition. Intervention/Recommendation Comments 1. Continue with current diet as ordered. Notified dietary assistant and updated pt food preference 2. Monitor PO intake, wt weekly, and skin integrity 3. F/U as low risk in 7 days, 04/04 Expected Outcomes/Goals Expected Outcomes/Goals 1. PO intake to meet at least 75% of nutritional needs. 2. Wt stability, skin to remain intact
[2017-04-09] MEDS: Atorvastatin Calcium 10 MG TAB PO SCH (21:00)
[2017-04-10] MEDS: Acetaminophen 500 MG TAB PO SCH ×3 (08:15→20:37)
[2017-04-10] MEDS: Multivitamin Tab PO SCH (08:17)
[2017-04-10] MEDS: Fish Oil 1,000 MG SGL PO SCH ×2 (08:17→16:28)
[2017-04-10] MEDS: POLYETHYLENE GLYCOL 3350 17 GM PACK PO SCH (08:21)
--- NOTE | 2017-04-10 11:05 | Internal Medicine Prog Note ---
Internal Medicine Subjective - Subjective Service Date: 04/10/17 Patient is:: awake, verbal, interactive, agitated, confused Patient Complaints of:: congestion, cough Per staff patient has:: no adverse event, poor appetite, noncompliant, tolerating meds Internal Medicine Objective - Physical Exam Vitals and I&O: Vital Signs Temp 98 F 04/09/17 19:53 Pulse 82 04/10/17 08:15 Resp 19 04/09/17 19:53 BP 164/74 04/10/17 08:15 Pulse Ox 95 04/09/17 19:53 Intake & Output 04/09/17 04/10/17 04/10/17 18:59 06:59 18:59 Intake Total 1200 420 Balance 1200 420 Intake: Oral 1200 420 Other: # Voids 4 2 # Bowel Movements 1 1 Stool Characteristics Soft Formed Active Medications: Current Medications Acetaminophen (Tylenol) 650 mg PO Q4HR PRN PRN Reason: Mild Pain / Temp above 100 Stop: 05/21/17 23:27 Acetaminophen (Tylenol Extra Strength) 500 mg PO TID [facility] Stop: 05/22/17 08:59 Last Admin: 04/10/17 08:15 Dose: 500 mg Al Hydrox/Mg Hydrox/Simethicone (Maalox) 30 ml PO Q4HR PRN PRN Reason: GI DISTRESS Stop: 05/21/17 23:27 Amantadine HCl (Symmetrel) 100 mg PO BID [facility] Stop: 05/22/17 08:59 Last Admin: 04/10/17 08:15 Dose: 100 mg Atorvastatin Calcium (Lipitor) 10 mg PO HS [facility] PRN Reason: Protocol Stop: 05/22/17 20:59 Last Admin: 04/09/17 21:00 Dose: 10 mg Baclofen (Lioresal) 20 mg PO BID [facility] Stop: 05/22/17 08:59 Last Admin: 04/10/17 08:17 Dose: 20 mg Carbidopa/Levodopa (Sinemet 25mg-100 Mg) 1 tab PO BID [facility] Stop: 05/22/17 08:59 Last Admin: 04/10/17 08:16 Dose: 1 tab Carvedilol (Coreg) 12.5 mg PO BID [facility] Stop: 05/23/17 16:59 Last Admin: 04/10/17 08:15 Dose: 12.5 mg Diphenhydramine HCl (Benadryl 50 Mg/Ml) 50 mg IM STAT PRN PRN Reason: Agitation Stop: 05/30/17 07:15 Docusate Sodium (Colace) 250 mg PO DAILY [facility] Stop: 05/22/17 08:59 Last Admin: 04/10/17 08:17 Dose: 250 mg Donepezil HCl (Aricept) 5 mg PO HS [facility] Stop: 06/08/17 20:59 Last Admin: 04/09/17 21:00 Dose: 5 mg Escitalopram Oxalate (Lexapro) 10 mg PO HS [facility] PRN Reason: Protocol Stop: 05/22/17 20:59 Last Admin: 04/09/17 21:00 Dose: 10 mg Fish Oil ([place] 3) 1,000 mg PO BID [facility] Stop: 05/22/17 08:59 Last Admin: 04/10/17 08:17 Dose: 1,000 mg Guaifenesin (Robitussin) 200 mg PO Q8HR PRN PRN Reason: Cough or Congestion Stop: 05/21/17 23:54 Last Admin: 03/24/17 13:31 Dose: 200 mg Levothyroxine Sodium 0.1 mg/ (Levothyroxine Sodium 0.05 mg) 0.15 mg PO QDAC [facility] Stop: 05/25/17 09:44 Last Admin: 04/10/17 06:42 Dose: 0.15 mg Lorazepam (Ativan) 2 mg IM STAT PRN; Protocol PRN Reason: Agitation Stop: 05/30/17 07:15 Magnesium Hydroxide (Milk Of Magnesia) 30 ml PO Q6H PRN PRN Reason: Constipation Stop: 05/22/17 13:01 Last Admin: 04/09/17 14:47 Dose: 30 ml Memantine (Namenda) 10 mg PO BID [facility] Stop: 05/27/17 08:59 Last Admin: 04/10/17 08:17 Dose: 10 mg Multivitamins/Vitamin C (Theragran) 1 tab PO DAILY [facility] Stop: 05/22/17 08:59 Last Admin: 04/10/17 08:17 Dose: 1 tab Olanzapine (Zyprexa) 10 mg PO HS [facility]EN PRN Reason: Protocol Stop: 06/02/17 11:32 Last Admin: 04/09/17 21:01 Dose: 10 mg Olanzapine (Zyprexa) 5 mg PO BID [facility] PRN Reason: Protocol Stop: 06/05/17 16:59 Last Admin: 04/10/17 08:17 Dose: 5 mg Polyethylene Glycol (Miralax) 17 gm PO DAILY [facility] Stop: 05/22/17 08:59 Last Admin: 04/10/17 08:21 Dose: Not Given Tramadol HCl (Ultram) 50 mg PO Q8H PRN PRN Reason: leg pain Stop: 05/21/17 23:54 Zolpidem Tartrate (Ambien) 5 mg PO HS PRN PRN Reason: Insomnia Stop: 05/21/17 23:27 Last Admin: 04/09/17 21:01 Dose: 5 mg General: demented HEENT: NC/AT, PERRLA Neck: Supple, No LAD, deformity Lungs: CTAB Cardiovascular: RRR, without murmur Abdomen: soft, non-tender, non-distended, positive bowel sound Extremities: excoriation Neurological: disorganized - Procedures Procedures: Procedures Procedure Code Date INDIVID PSYCHOTHERAP NEC 94.39 07/29/08 OTHER GROUP THERAPY 94.44 09/09/14 RECREATIONAL THERAPY 93.81 07/29/08 Internal Medicine Assmt/Plan - Assessment Assessment: HTN HYPERCHOLESTEREMIA SCHIZOAFFECTIVE PARKINSON'S HYPOTHYROIDISM - Plan Plan: fall precautions safety precautions continue current plan of care Nutritional Asmnt/Malnutr-PDOC - Dietary Evaluation Malnutrition Findings (Please click <Entered> for more info): Nutritional Asmnt/Malnutrition Start: 03/28/17 15: 31 Text: Status: Complete Freq: Document 03/28/17 15:31 LCHENG (Rec: 03/28/17 15:37 [email or web address]) Nutritional Asmnt/Malnutrition Patient General Information Nutritional Screening Moderate Risk Diagnosis psychosis Pertinent Medical Hx/Surgical Hx HTN, hypercholesterolemia, schizophrenia, pankinson/s disease, dementia, hypothyroidism Subjective Information Pt seen lying in bed, awake. Pt reported good appetite, has difficulty to chew rice, like herbal tea instead of coffee. pt has partial teeth noted. Per notes, PO intake 100%. Current Diet Order/ Nutrition Support no added salt 4 gm Pertinent Medications colcace, omega 3, levothyroxine, theragran Pertinent Labs no labs Nutritional Hx/Data Height 5 ft 6 in Height (Calculated Centimeters) 167.6 Current Weight (lbs) 218 lb Weight (Calculated Kilograms) 98.9 Weight (Calculated Grams) 10575.1 [place] Body Weight 130 % [place] Body Weight 168 Body Mass Index (BMI) 35.2 Weight Status Obese GI Symptoms GI Symptoms None Last BM 03/28 Difficult in: None Skin Integrity/Comment: intact Current %PO Good (75-100%) Estimated Nutritional Goals BEE in Kcals: Adj wt of IBW Calories/Kcals/Kg 25-30 Kcals Calculated 9095-5086 based on adj wt 69kg Protein: Adj wt of IBW Protein g/k Protein Calculated 69 Fluid: ml 8597-3059 Nutritional Problem 1. Problem Problem obesity Etiology possible excessive energy intake Signs/Symptoms: BMI 35 Malnutrition Alert Protein-Calorie Malnutrition N/A Is there a minimum of two criteria No selected? Query Text:Check all the applicable criteria. A minimum of two criteria are recommended for diagnosis of either severe or non-severe malnutrition. Intervention/Recommendation Comments 1. Continue with current diet as ordered. Notified coupon clerk and updated pt food preference 2. Monitor PO intake, wt weekly, and skin integrity 3. F/U as low risk in 7 days, 04/04 Expected Outcomes/Goals Expected Outcomes/Goals 1. PO intake to meet at least 75% of nutritional needs. 2. Wt stability, skin to remain intact
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
[2017-04-10] MEDS: Atorvastatin Calcium 10 MG TAB PO SCH (20:37)
[2017-04-11] MEDS: Fish Oil 1,000 MG SGL PO SCH (09:02)
[2017-04-11] MEDS: Acetaminophen 500 MG TAB PO SCH (09:03)
[2017-04-11] MEDS: Multivitamin Tab PO SCH (09:03)
[2017-04-11] MEDS: POLYETHYLENE GLYCOL 3350 17 GM PACK PO SCH (09:04)
--- NOTE | 2017-04-11 10:57 | Internal Medicine Prog Note ---
Internal Medicine Subjective - Subjective Service Date: 04/11/17 Patient is:: awake, verbal, interactive, agitated, confused Patient Complaints of:: congestion, cough Per staff patient has:: no adverse event, poor appetite, noncompliant, tolerating meds Internal Medicine Objective - Physical Exam Vitals and I&O: Vital Signs Temp 96.7 F 04/11/17 06:07 Pulse 85 04/11/17 09:02 Resp 19 04/11/17 06:07 BP 151/83 04/11/17 09:02 Pulse Ox 92 04/11/17 06:07 Intake & Output 04/10/17 04/11/17 04/11/17 18:59 06:59 18:59 Intake Total 360 Balance 360 Intake: Oral 360 Other: # Voids 2 # Bowel Movements 0 Active Medications: Current Medications Acetaminophen (Tylenol) 650 mg PO Q4HR PRN PRN Reason: Mild Pain / Temp above 100 Stop: 05/21/17 23:27 Acetaminophen (Tylenol Extra Strength) 500 mg PO TID [facility] Stop: 05/22/17 08:59 Last Admin: 04/11/17 09:03 Dose: 500 mg Al Hydrox/Mg Hydrox/Simethicone (Maalox) 30 ml PO Q4HR PRN PRN Reason: GI DISTRESS Stop: 05/21/17 23:27 Amantadine HCl (Symmetrel) 100 mg PO BID [facility] Stop: 05/22/17 08:59 Last Admin: 04/11/17 09:03 Dose: 100 mg Atorvastatin Calcium (Lipitor) 10 mg PO HS [facility] PRN Reason: Protocol Stop: 05/22/17 20:59 Last Admin: 04/10/17 20:37 Dose: 10 mg Baclofen (Lioresal) 20 mg PO BID [facility] Stop: 05/22/17 08:59 Last Admin: 04/11/17 09:02 Dose: 20 mg Carbidopa/Levodopa (Sinemet 25mg-100 Mg) 1 tab PO BID [facility] Stop: 05/22/17 08:59 Last Admin: 04/11/17 09:03 Dose: 1 tab Carvedilol (Coreg) 12.5 mg PO BID [facility] Stop: 05/23/17 16:59 Last Admin: 04/11/17 09:02 Dose: 12.5 mg Diphenhydramine HCl (Benadryl 50 Mg/Ml) 50 mg IM STAT PRN PRN Reason: Agitation Stop: 05/30/17 07:15 Docusate Sodium (Colace) 250 mg PO DAILY [facility] Stop: 05/22/17 08:59 Last Admin: 04/11/17 09:03 Dose: 250 mg Donepezil HCl (Aricept) 5 mg PO HS [facility] Stop: 06/08/17 20:59 Last Admin: 04/10/17 20:37 Dose: 5 mg Escitalopram Oxalate (Lexapro) 10 mg PO HS [facility] PRN Reason: Protocol Stop: 05/22/17 20:59 Last Admin: 04/10/17 20:36 Dose: 10 mg Fish Oil ([place] 3) 1,000 mg PO BID [facility] Stop: 05/22/17 08:59 Last Admin: 04/11/17 09:02 Dose: 1,000 mg Guaifenesin (Robitussin) 200 mg PO Q8HR PRN PRN Reason: Cough or Congestion Stop: 05/21/17 23:54 Last Admin: 03/24/17 13:31 Dose: 200 mg Levothyroxine Sodium 0.1 mg/ (Levothyroxine Sodium 0.05 mg) 0.15 mg PO QDAC [facility] Stop: 05/25/17 09:44 Last Admin: 04/11/17 06:31 Dose: 0.15 mg Lorazepam (Ativan) 2 mg IM STAT PRN; Protocol PRN Reason: Agitation Stop: 05/30/17 07:15 Magnesium Hydroxide (Milk Of Magnesia) 30 ml PO Q6H PRN PRN Reason: Constipation Stop: 05/22/17 13:01 Last Admin: 04/09/17 14:47 Dose: 30 ml Memantine (Namenda) 10 mg PO BID [facility] Stop: 05/27/17 08:59 Last Admin: 04/11/17 09:03 Dose: 10 mg Multivitamins/Vitamin C (Theragran) 1 tab PO DAILY [facility] Stop: 05/22/17 08:59 Last Admin: 04/11/17 09:03 Dose: 1 tab Olanzapine (Zyprexa) 10 mg PO HS [facility] PRN Reason: Protocol Stop: 06/02/17 11:32 Last Admin: 04/10/17 20:37 Dose: 10 mg Olanzapine (Zyprexa) 5 mg PO BID [facility] PRN Reason: Protocol Stop: 06/05/17 16:59 Last Admin: 04/11/17 09:03 Dose: 5 mg Polyethylene Glycol (Miralax) 17 gm PO DAILY [facility] Stop: 05/22/17 08:59 Last Admin: 04/11/17 09:04 Dose: Not Given Tramadol HCl (Ultram) 50 mg PO Q8H PRN PRN Reason: leg pain Stop: 05/21/17 23:54 Zolpidem Tartrate (Ambien) 5 mg PO HS PRN PRN Reason: Insomnia Stop: 05/21/17 23:27 Last Admin: 04/10/17 20:37 Dose: 5 mg General: demented HEENT: NC/AT, PERRLA Neck: Supple, No LAD, deformity Lungs: CTAB Cardiovascular: RRR, without murmur Abdomen: soft, non-tender, non-distended, positive bowel sound Extremities: excoriation Neurological: disorganized - Procedures Procedures: Procedures Procedure Code Date INDIVID PSYCHOTHERAP NEC 94.39 07/29/08 OTHER GROUP THERAPY 94.44 09/09/14 RECREATIONAL THERAPY 93.81 07/29/08 Internal Medicine Assmt/Plan - Assessment Assessment: HTN HYPERCHOLESTEREMIA SCHIZOAFFECTIVE PARKINSON'S HYPOTHYROIDISM - Plan Plan: fall precautions safety precautions continue current plan of care Nutritional Asmnt/Malnutr-PDOC - Dietary Evaluation Malnutrition Findings (Please click <Entered> for more info): Nutritional Asmnt/Malnutrition Start: 03/28/17 15: 31 Text: Status: Complete Freq: Document 03/28/17 15:31 MARCELA (Rec: 03/28/17 15:37 [email or web address] Nutritional Asmnt/Malnutrition Patient General Information Nutritional Screening Moderate Risk Diagnosis psychosis Pertinent Medical Hx/Surgical Hx HTN, hypercholesterolemia, schizophrenia, pankinson/s disease, dementia, hypothyroidism Subjective Information Pt seen lying in bed, awake. Pt reported good appetite, has difficulty to chew rice, like herbal tea instead of coffee. pt has partial teeth noted. Per notes, PO intake 100%. Current Diet Order/ Nutrition Support no added salt 4 gm Pertinent Medications colcace, omega 3, levothyroxine, theragran Pertinent Labs no labs Nutritional Hx/Data Height 5 ft 6 in Height (Calculated Centimeters) 167.6 Current Weight (lbs) 218 lb Weight (Calculated Kilograms) 98.9 Weight (Calculated Grams) 10600.1 [place] Body Weight 130 % [place] Body Weight 168 Body Mass Index (BMI) 35.2 Weight Status Obese GI Symptoms GI Symptoms None Last BM 03/28 Difficult in: None Skin Integrity/Comment: intact Current %PO Good (75-100%) Estimated Nutritional Goals BEE in Kcals: Adj wt of IBW Calories/Kcals/Kg 25-30 Kcals Calculated 9082-4021 based on adj wt 69kg Protein: Adj wt of IBW Protein g/k Protein Calculated 69 Fluid: ml 4600-7914 Nutritional Problem 1. Problem Problem obesity Etiology possible excessive energy intake Signs/Symptoms: BMI 35 Malnutrition Alert Protein-Calorie Malnutrition N/A Is there a minimum of two criteria No selected? Query Text:Check all the applicable criteria. A minimum of two criteria are recommended for diagnosis of either severe or non-severe malnutrition. Intervention/Recommendation Comments 1. Continue with current diet as ordered. Notified insurance policy clerk and updated pt food preference 2. Monitor PO intake, wt weekly, and skin integrity 3. F/U as low risk in 7 days, 04/04 Expected Outcomes/Goals Expected Outcomes/Goals 1. PO intake to meet at least 75% of nutritional needs. 2. Wt stability, skin to remain intact
--- NOTE | 2017-04-11 16:49 | Progress Notes ---
DATE: 04/11/2017 ADDENDUM The patient was not discharged the day before placement reason; however, today she is doing well. She is sleeping well, eating well. She is ready for discharge. Nothing happened since yesterday. No changes in medication. The main reason for her withholding was purely placement issue. So today, she will go to see ____ Discussed with staff. If she does not for any reason; they do not take her, then she can go to another facility and so far no side effects with the medication. So discharge diagnosis and plan stay the same. JOB# [id number]
== END 2017-04-11 17:00 | DRG 885 ==
LOC: GERO 17:52
PROVIDERS: ADMIT Psychiatry & Neurology Psychiatry; ATTEND Psychiatry & Neurology Psychiatry
DX: F25.0 Schizoaffective disorder, bipolar type (principal); J18.9 Pneumonia, unspecified organism; G20 Parkinson's disease; F02.81 Dementia in other diseases classified elsewhere, unspecified severity, with behavioral disturbance; E87.1 Hypo-osmolality and hyponatremia; I10 Essential (primary) hypertension; E03.9 Hypothyroidism, unspecified; E78.00 Pure hypercholesterolemia, unspecified; R73.9 Hyperglycemia, unspecified; Z88.0 Allergy status to penicillin; Z91.012 Allergy to eggs
CPT/HCPCS: 71010-TC; J1200; J1630; J2060; J7051; Z7610